=== PATIENT | female | born 1975 | race Caucasian/White ===

== ENCOUNTER 2017-05-24 17:34 | Emergency (ER) | payer MEDICARE, OTHER, SELFPAY | END 2017-05-24 18:30 | disposition home or self-care (01) | PROVIDERS: Emergency Provider Nurse Practitioner; Family Provider Family Medicine; Visit Provider Nurse Practitioner | DX: J18.1 Lobar pneumonia, unspecified organism (principal); E11.9 Type 2 diabetes mellitus without complications; I10 Essential (primary) hypertension; Z79.899 Other long term (current) drug therapy; Z88.0 Allergy status to penicillin | CPT/HCPCS: G0463; 71020; 94640; 99201 ==

== ENCOUNTER 2019-01-06 16:00 | Outpatient (RCR) | payer MEDICARE, OTHER, SELFPAY | END 2019-01-06 16:05 | disposition home or self-care (01) | LOC: PT 16:00 | PROVIDERS: PCP Family Medicine; Visit Provider Family Medicine | DX: I89.0 Lymphedema, not elsewhere classified (principal); M25.561 Pain in right knee | CPT/HCPCS: 97110; 97140; 97163 ==

== ENCOUNTER → 2019-07-09 13:35 | Outpatient (CLI) | payer MEDICARE, OTHER, SELFPAY ==
[2019-07-09 13:43] LABS: Adenovirus F 40/41, stool Not Detected (NotDetected); Astrovirus Not Detected (NotDetected); Campylobacter Not Detected (NotDetected); Clostridium Difficile A/B, PCR Not Detected (NotDetected); Cryptosporidium Not Detected (NotDetected); Cyclospora Cayetanesis Not Detected (NotDetected); Entamoeba histolytica Not Detected (NotDetected); Enteroaggregative E coli Not Detected (NotDetected); Enteropathogenic E coli Not Detected (NotDetected); Enterotoxigenic E coli Not Detected (NotDetected); Giardia lamblia Not Detected (NotDetected); Norovirus Not Detected (NotDetected); Plesimonas Shigalloides, PCR Not Detected (NotDetected); Rotavirus A Not Detected (NotDetected); Salmonella, PCR Not Detected (NotDetected); Sapovirus Not Detected (NotDetected); Shiga-like toxin E coli Not Detected (NotDetected); Shigella Enterovasive E coli Not Detected (NotDetected); Vibrio Cholerae Not Detected (NotDetected); Vibrio, PCR Not Detected (NotDetected); Yersinia Entercolitica, PCR Not Detected (NotDetected)
== END ==
PROVIDERS: Visit Provider Nurse Practitioner
DX: R19.7 Diarrhea, unspecified (principal)
CPT/HCPCS: 87506

== ENCOUNTER 2021-02-04 15:24 | Emergency (ER) | payer MEDICARE, OTHER, SELFPAY ==
[2021-02-04 16:10] VITALS: BP 157/85; PULSE 85; RESP 20; TEMP 36.6; O2SAT 99; BMI 88.9
--- NOTE | 2021-02-04 16:24 | HMH.EDUTC ---
[facility] [place] Disposition Clinical Impression: Lymphedema Cellulitis Qualifiers: Site of cellulitis: extremity Site of cellulitis of extremity: lower extremity Laterality: right Qualified Code(s): L03.115 - Cellulitis of right lower limb Disposition: Home, Self-Care Condition on Discharge: Good Instructions: Cellulitis Additional Instructions: Apply warm wet compresses to the affected sites three or four times per day for 15 minutes as tolerated. Take the antibiotics as directed. Follow up with your regular doctor on Saturday for a recheck. If this is not getting better, you may need to be admitted and get iv antibiotics for a few days to get it better. Cellulitis could make you very sick, so if you have any worsening symptoms please go straight to the er. GO TO THE ER FOR ANY WORSENING SYMPTOMS OR CONCERNS Prescriptions: Mupirocin [Bactroban 2% Ointment 22gm tube] 1 applicatio TP TID 7 Days #1 gm Transmission Status: Received by [facility] clindamycin HCL [Clindamycin HCl] 300 mg PO Q8H 10 Days #30 cap Transmission Status: Received by [id number] Referrals: Giselle Workman [Primary Care Provider] - Time of Disposition: 18:14 Medical Decision Making - Medical Records Medical records reviewed: No: I reviewed the patient's medical records. - Korey Inquiry Pt receiving controlled substance: No Vital Signs: 02/04/21 16:10 02/04/21 18:21 Temperature 98 F 98 F Temperature Source Oral Pulse Rate 85 Pulse Rate [Left] 85 Respiratory Rate 20 16 Blood Pressure 157/85 H Blood Pressure [Right Arm] 157/85 H Blood Pressure Mean [Right Arm] 109 02 Sat by Pulse Oximetry 99 - Lab Data Lab results reviewed: Yes: I reviewed the patient's lab results. Lab Results 02/04/21 17:13: WBC 13.8 H, RBC 3.49 L, Hgb 11.0 L, Hct 34.7 L, MCV 99.6 H, MCH 31.6 H, MCHC 31.7 L, RDW 14.9, Plt Count 216, MPV 8.0, Neut % (Auto) 90.1 H, Lymph % (Auto) 5.1 L, Brule % (Auto) 2.5, Eos % (Auto) 2.0, Baso % (Auto) 0.4, Neut # (Auto) 12.4 H, Lymph # (Auto) 0.7, Brule # (Auto) 0.3, Eos # (Auto) 0.3, Baso # (Auto) 0.1, Total Counted 100, Neutrophils % (Manual) 83 H, Band Neutrophils % 4.0, Lymphocytes % (Manual) 6 L, Monocytes % (Manual) 7, Platelet Estimate Normal, RBC Morphology Normal 02/04/21 17:13: Sodium 137, Potassium 3.9, Chloride 95 L, Carbon Dioxide 31 H, Anion Gap 14.9, BUN 31 H, Creatinine 1.30 H, Estimated Creat Clear 55, Estimated GFR 44 L, Est GFR ( Amer) 54 L, Glucose 233 H, Calcium 8.9, Total Bilirubin 2.5 H, AST 51 H, ALT 30, Alkaline Phosphatase 167 H, Total Protein 8.3 H, Albumin 3.9, Globulin 4.4 H, Albumin/Globulin Ratio 0.9 L 02/04/21 17:13: Lactate 1.8 02/04/21 17:13: Procalcitonin 1.73 Result diagrams: 02/04/21 17:13 02/04/21 17:13 Medical Decision Narrative: I wanted to transfer her to the ER for possible admission and further evaluation, but at this time she refuses. She states that she will return to the ER for even the slightest change in her condition. [facility] [place] HPI - General Stated complaint: r leg red and swelling Time Seen by Provider: 02/04/21 16:24 Mode of Arrival: Ambulatory Source of Information: Patient Limitations: No Limitations Description of Symptoms (Recalled from Triage Doc. by RN): PT C/O REDNESS, SWELLING AND OOZING AREA ON ENTIRE R THIGH. HEENT Symptoms (Recalled from RN notes): No Resp Symptoms (Recalled from RN notes): No Skin Symptoms (Recalled from RN notes): Yes (RED, SWOLLEN, OOZING, WARM AREA ON ENTIRE UPPER OUTER THIGH) MS Symptoms (Recalled from RN notes): No Functional Status (Recalled from RN notes): NA - History of Present Illness Provider Complaint: She has had redness of her right upper leg, weeping from her skin, and pain/tenderness of that site for the past 2 days. She has ran a low grade fever and had chilling also. She has a long history of bilateral leg lymphedema. She states that she has essentially had that since she was a child.
[2021-02-04 17:25] LABS: Basophils # 0.1 K/mm3 (0-0.2); Basophils % 0.4 % (0.1-2.0); Eosinophils # 0.3 K/mm3 (0.0-0.4); Hematocrit 34.7 % (37.0-47.0); Lymphocytes # 0.7 K/mm3 (0.7-4.5); Lymphocytes % 5.1 % (10-50); Mean Corpuscular HGB Conc 31.7 g/dL (31.8-35.4); Mean Corpuscular Hemoglobin 31.6 pg (27.0-31.2); Mean Corpuscular Volume 99.6 fl (81-99); Monocytes # 0.3 K/mm3 (0.1-1.0); Monocytes % 2.5 % (1.7-9.3); Neutrophils # 12.4 K/mm3 (1.8-7.8); Neutrophils % 90.1 % (37.0-80.0); Platelet Count 216 K/mm3 (142-424); Red Blood Count 3.49 M/mm3 (4.20-5.40); Red Cell Distribution Width 14.9 % (11.5-17.5); White Blood Count 13.8 K/mm3 (4.8-10.8)
[2021-02-04 17:28] LABS: Chloride 95 mmol/L (98-107)
[2021-02-04 17:29] LABS: Potassium 3.9 mmoL/L (3.5-5.1); Sodium 137 mmol/L (136-145)
[2021-02-04 17:31] LABS: Alanine Aminotransferase 30 U/L (12-78); Aspartate Amino Transferase 51 U/L (14-36); Blood Urea Nitrogen 31 mg/dl (7-17); Creatinine Clearance Estimated 55 mL/min (50-200); Estimated Glomerular Filt Rate 44 ml/min (>60); GFR (African American) 54 ML/MIN (>60)
[2021-02-04 17:32] LABS: Albumin Level 3.9 g/dl (3.5-5.0); Albumin/Globulin Ratio 0.9 (1.1-1.8); Alkaline Phosphatase 167 U/L (38-126); Anion Gap 14.9 mEq/L (5-15); Bilirubin,Total 2.5 mg/dl (0.2-1.3); Calcium 8.9 mg/dl (8.4-10.2); Carbon Dioxide 31 mmol/L (22.0-30.0); Globulin 4.4 g/dL (1.3-3.2); Glucose 233 mg/dl (74-100); MANUAL DIFFERENTIAL MANUAL DIFFERENTIAL (MANUAL DIFF); Total Protein,Serum 8.3 g/dl (6.3-8.2)
[2021-02-04 17:40] LABS: Lactic Acid 1.8 mmol/L (0.7-2.1)
[2021-02-04 17:42] LABS: Lymphocytes % 6 % (10-50); Monocytes % 7 % (2-9); Neutrophils % 83 % (42-76); Platelet Estimate Normal; RBC Morphology Normal; Total Cells Counted 100
[2021-02-04 17:56] LABS: Procalcitonin 1.73 ng/mL (0.0-2.0)
[2021-02-04 18:21] VITALS: BP 157/85; PULSE 85; RESP 16; TEMP 36.6
== END 2021-02-04 18:36 | disposition home or self-care (01) ==
PROVIDERS: Emergency Provider Nurse Practitioner Family; PCP Family Medicine
DX: L03.115 Cellulitis of right lower limb (principal); I89.0 Lymphedema, not elsewhere classified; J44.9 Chronic obstructive pulmonary disease, unspecified; K21.9 Gastro-esophageal reflux disease without esophagitis; E78.5 Hyperlipidemia, unspecified; E03.9 Hypothyroidism, unspecified; Z88.0 Allergy status to penicillin
CPT/HCPCS: G0463; 80053; 83605; 84145; 85007; 85025; 99202

== ENCOUNTER → 2021-02-16 15:58 | Outpatient (CLI) | payer MEDICARE, OTHER, SELFPAY ==
--- NOTE | 2021-02-16 16:09 | XR_ITS ---
PROCEDURE INFORMATION: Exam: XR Right Foot Exam date and time: 02/16/2021 4:09 PM Age: 45 years old Clinical indication: Ankle and foot; Patient HX: Bilateral foot and ankle pain , no injury , patient weighs 585 lbs TECHNIQUE: Imaging protocol: XR Right foot. Views: 3 or more views. COMPARISON: CR Knee R 12/12/2018 2:07 PM FINDINGS: Bones/joints: There is no evidence of acute fracture.There is no evidence of malalignment or dislocation. Soft tissues: Soft tissue swelling over the dorsum of foot.. IMPRESSION: 1. Soft tissue swelling over the dorsum of foot.. 2. There is no evidence of acute fracture.There is no evidence of malalignment or dislocation.
--- NOTE | 2021-02-16 16:09 | XR_ITS ---
PROCEDURE INFORMATION: Exam: XR Right Ankle Exam date and time: 02/16/2021 4:09 PM Age: 45 years old Clinical indication: Ankle and foot; Bilateral; Patient HX: No injury, pain , a the the a a patient weighs 585 lbs; Additional info: Bilateral foot and ankle pain TECHNIQUE: Imaging protocol: XR Right ankle. Views: 3 or more views. COMPARISON: CR Knee R 12/12/2018 2:07 PM FINDINGS: Bones/joints: There is no evidence of acute fracture.There is no evidence of malalignment or dislocation. Degenerative changes in the medial malleolus Soft tissues: Bimalleolar soft tissue swelling . IMPRESSION: 1. Bimalleolar soft tissue swelling . 2. There is no evidence of acute fracture.There is no evidence of malalignment or dislocation.
--- NOTE | 2021-02-16 16:09 | XR_ITS ---
PROCEDURE INFORMATION: Exam: XR Left Ankle Exam date and time: 02/16/2021 4:09 PM Age: 45 years old Clinical indication: Ankle and foot; Patient HX: Bilateral foot and ankle pain, no injury patient weighs 585 lbs TECHNIQUE: Imaging protocol: XR Left ankle. Views: 3 or more views. COMPARISON: CR XR FOOT LT MIN 3V 02/16/2021 4:28 PM FINDINGS: Bones/joints: Medial malleolar degenerative changes. There is no evidence of acute fracture.There is no evidence of malalignment or dislocation. Soft tissues: Bimalleolar soft tissue swelling IMPRESSION: There is no evidence of acute fracture.There is no evidence of malalignment or dislocation.
--- NOTE | 2021-02-16 16:09 | XR_ITS ---
PROCEDURE INFORMATION: Exam: XR Left Foot Exam date and time: 02/16/2021 4:09 PM Age: 45 years old Clinical indication: Ankle and foot; Patient HX: Bilateral foot and ankle pain, no injury , patient weighs 585 lbs TECHNIQUE: Imaging protocol: XR Left foot. Views: 3 or more views. COMPARISON: No relevant prior studies available. FINDINGS: Bones/joints: There is no evidence of acute fracture.There is no evidence of malalignment or dislocation. Soft tissues: Soft tissue swelling over the dorsum of the foot IMPRESSION: There is no evidence of acute fracture.There is no evidence of malalignment or dislocation.
== END ==
PROVIDERS: PCP Family Medicine; Visit Provider Family Medicine
DX: M25.572 Pain in left ankle and joints of left foot (principal); M25.571 Pain in right ankle and joints of right foot; M79.672 Pain in left foot; M79.671 Pain in right foot
CPT/HCPCS: 73610; 73630

== ENCOUNTER 2022-07-08 11:32 | Emergency (ER) | payer MEDICARE, OTHER, SELFPAY ==
[2022-07-08 11:32] VITALS: BP 198/108; PULSE 95; RESP 18; TEMP 36.5; O2SAT 96; BMI 88.9
--- NOTE | 2022-07-08 11:43 | PC.NURSE ---
HARI ESQUIVEL at
--- NOTE | 2022-07-08 11:45 | XR_ITS ---
PROCEDURE INFORMATION: Exam: XR Left Foot Exam date and time: 07/08/2022 12:08 PM Age: 46 years old Clinical indication: Pain; Ankle and foot; Left TECHNIQUE: Imaging protocol: Radiologic exam of the Left foot. Views: 3 or more views. COMPARISON: CR XR FOOT LT MIN 3V 02/16/2021 4:28 PM FINDINGS: Bones/joints: No acute fracture or malalignment. Mild 1st MTP joint degenerative changes. Calcaneal enthesopathy. Soft tissues: Normal. IMPRESSION: No acute fracture or malalignment.
--- NOTE | 2022-07-08 11:45 | XR_ITS ---
PROCEDURE INFORMATION: Exam: XR Left Ankle Exam date and time: 07/08/2022 12:08 PM Age: 46 years old Clinical indication: Pain; Ankle; Left TECHNIQUE: Imaging protocol: Radiologic exam of the Left ankle. Views: 3 or more views. COMPARISON: CR XR ANKLE LT MIN 3V 02/16/2021 4:34 PM FINDINGS: Bones/joints: No acute fracture or malalignment. Joint spaces are maintained. Calcaneal enthesopathy. Soft tissues: Subcutaneous soft tissue calcifications are seen. IMPRESSION: No acute fracture or malalignment.
--- NOTE | 2022-07-08 11:46 | HMH.EDGENADL ---
Discharge Plan Disposition Patient Disposition: Home, Self-Care Condition: Good Prescriptions Prescriptions: New hydrocodone-acetaminophen 5-325 mg tablet 1 tab PO Q6H PRN (Reason: pain) Qty: 10 0RF No Action tizanidine 4 MG tablet 8 mg PO HS PRN (Reason: MUSCLE RELAXER) famotidine 20 MG tablet 20 mg PO BID Label Comments: TAKE 1 TABLET BY MOUTH TWICE DAILY gabapentin 800 MG tablet 800 mg PO QID Label Comments: TAKE 4 TABLETS BY MOUTH DAILY levothyroxine 50 MCG tablet 25 mcg PO DAILY glimepiride 4 MG tablet 16 mg PO DAILY montelukast 10 MG tablet 10 mg PO PM pravastatin 20 MG tablet 20 mg PO DAILY metoprolol succinate [Toprol XL] 25 mg Tablet Extended Release 24 Hr 25 mg PO DAILY cefdinir 300 mg Capsule 300 mg PO DAILY Eliquis 5 mg Tablet 5 mg PO BID Rybelsus 3 mg Tablet 3 mg PO DAILY Referrals Follow up/Referrals: Provider,Referral, [Referring] - See instructions Mary Velasco DPM [Staff Physician] - See instructions Activity Restrictions/Add. Instructions Additional Instructions/Restrictions: Stay off of your left foot is much as possible until seen by podiatry, Dr. Velasco. Call Dr. Velasco's office tomorrow to make an appointment to be seen as soon as possible. Tylenol as needed for pain, [place] as needed for more severe pain. Additional instructions for CONTROLLED SUBSTANCES: You have been prescribed a medication that is a controlled substance. Controlled substances include pain medications known as opiates and sedative nerve medications known as benzodiazepines. Tramadol, fioricet, and gabapentin are also controlled substances. Some common opiates include: Codeine (such as Tylenol #3) Hydrocodone (Vicodin, Lortab, Lorcet, [place]) Oxycodone (Percocet, Percodan, Oxycodone, Oxy IR) Some common benzodiazepines include: Diazepam (Valium) Lorazepam (Ativan) Alprazolam (Xanax) Clonazepam (Klonopin) Oxazepam (Serax) All of these controlled substances are highly addictive and frequently abused. Misuse can and frequently does lead to addiction as well as overdose and . Medication should be stored in a locked cabinet or other secure storage unit. Do not store the medication in a motor vehicle. Short term supplies, 3 days or less, are prescribed because of the highly addictive nature of the medication. Any of the controlled substance medication NOT taken should be disposed of properly and NOT SAVED. The recommended method of disposing of unused medications is: Place the medicines in a sealable plastic bag. If the medicine is a solid, crush it or add water to dissolve it. Add something undesirable (cat litter, coffee grounds, etc.) Dispose of sealed bag in household trash Do not flush or pour unused medicines down a sink or drain. Controlled substances should not be shared, given away or sold. Because of the addictive nature and frequent abuse, these medications are sometimes stolen. These medications should be kept in a safe place where they cannot be stolen. Do not keep them in your car or purse. Lost or stolen prescriptions for controlled substances WILL NOT BE REFILLED in this emergency department, regardless of whether a police report was filed. Clinical Impressions Clinical Impression: Foot sprain, Ankle sprain Instructions Patient Instructions: DI for Ankle Sprain, DI for Foot Sprain Discharge ED Provider: Sameer Camacho General Adult [facility] General Chief complaint: Extremity Injury, Lower Stated complaint: pain Time Seen by Provider: 07/08/22 11:39 Mode of Arrival: Wheelchair Source of Information: Patient Limitations: No Limitations Description of Symptoms (Recalled from ER Triage Doc. by RN): Pt c/o L ankle pain radiating into the side of her foot for approx 1 weeks with worsening pain. Pt reports initally pain was only when bearing weight but now pain is at rest also.
--- NOTE | 2022-07-08 11:50 | PC.NURSE ---
rad notified of xray orders
--- NOTE | 2022-07-08 11:52 | PC.NURSE ---
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 NO active bleeding upon arrival to ED.
[2022-07-08 12:41] VITALS: BP 163/91; PULSE 73; RESP 18; TEMP 36.5; O2SAT 93
== END 2022-07-08 12:41 | disposition home or self-care (01) ==
PROVIDERS: Emergency Provider Emergency Medicine; PCP Family Medicine
DX: S93.602A Unspecified sprain of left foot, initial encounter (principal); S93.402A Sprain of unspecified ligament of left ankle, initial encounter; X58.XXXA Exposure to other specified factors, initial encounter
CPT/HCPCS: 73610; 73630; 99284

== ENCOUNTER → 2022-07-30 07:42 | Outpatient (CLI) | payer MEDICARE, OTHER, SELFPAY ==
--- NOTE | 2022-07-30 07:45 | XR_ITS ---
FINAL REPORT CLINICAL HISTORY: Left ankle pain FINDINGS: LEFT ANKLE: Three views of the left ankle were obtained. There is no acute fracture or dislocation. There are mild degenerative changes. Multiple soft tissue calcifications are noted. IMPRESSION: No acute bony abnormality. Reviewed, Interpreted and Dictated by Darrell Cohen III, MD Transcribed by Claudia Werner Authenticated and [facility]
--- NOTE | 2022-07-30 07:45 | XR_ITS ---
FINAL REPORT CLINICAL HISTORY: Left foot pain FINDINGS: LEFT FOOT: Three views of the left foot were obtained. There is no acute fracture or dislocation. There are calcaneal spurs. Mild degenerative changes are noted in the 1st MTP joint. There is no soft tissue abnormality. IMPRESSION: No acute bony abnormality. Reviewed, Interpreted and Dictated by Darrell Cohen III, MD Transcribed by Claudia Werner Authenticated and [facility]
== END ==
PROVIDERS: PCP Family Medicine; Visit Provider Podiatrist
DX: M25.572 Pain in left ankle and joints of left foot (principal); S93.602A Unspecified sprain of left foot, initial encounter; S93.402A Sprain of unspecified ligament of left ankle, initial encounter
CPT/HCPCS: 73610; 73630

== ENCOUNTER → 2022-08-27 08:35 | Outpatient (CLI) | payer MEDICARE, OTHER, SELFPAY ==
--- NOTE | 2022-08-27 08:40 | XR_ITS ---
FINAL REPORT CLINICAL HISTORY: fx f/u COMPARISON: July 30, 2022 FINDINGS: 3 views of the left foot were obtained. There is no acute fracture or dislocation. The joint spaces are intact. There is a moderate plantar spur. There is soft tissue edema over the dorsum of the foot up to 1.8 cm. IMPRESSION: No acute osseous abnormality. Reviewed, Interpreted and Dictated by Brant Babb MD Transcribed by Lg Tamez Authenticated and [facility]
== END ==
PROVIDERS: PCP Family Medicine; Visit Provider Podiatrist
DX: M77.32 Calcaneal spur, left foot (principal)
CPT/HCPCS: 73630

== ENCOUNTER → 2022-09-11 14:17 | Outpatient (CLI) | payer MEDICARE, OTHER, SELFPAY | PROVIDERS: PCP Family Medicine; Visit Provider Physician Assistant | DX: E11.40 Type 2 diabetes mellitus with diabetic neuropathy, unspecified (principal); E66.01 Morbid (severe) obesity due to excess calories; R06.00 Dyspnea, unspecified; R60.9 Edema, unspecified; Z82.49 Family history of ischemic heart disease and other diseases of the circulatory system; Z79.84 Long term (current) use of oral hypoglycemic drugs; Z68.45 Body mass index [BMI] 70 or greater, adult | CPT/HCPCS: 93306 ==

== ENCOUNTER → 2022-10-08 11:25 | Outpatient (CLI) | payer MEDICARE, OTHER, SELFPAY ==
--- NOTE | 2022-10-08 11:26 | CT_ITS ---
FINAL REPORT TECHNIQUE: Then section axial CT images of the chest were obtained with contrast. Three-D reformatted images were also obtained.This study was performed with techniques to keep radiation doses as low as reasonably achievable (ALARA). Individualized dose reduction techniques using automated exposure control or adjustment of mA and/or kV according to the patient''s size were employed. CLINICAL HISTORY: dyspnea, abnoraml ekg FINDINGS: There is no evidence of pulmonary embolism. There is no evidence of thoracic aortic aneurysm or dissection. There is no evidence of mediastinal or hilar mass or adenopathy. There is no evidence of pulmonary mass or suspicious nodule. Mild pulmonary alveolar opacities favoring pulmonary edema. Limited images of the upper abdomen are unremarkable. IMPRESSION: No evidence of pulmonary embolism. Mild pulmonary alveolar opacities favoring pulmonary edema. Reviewed, Interpreted and Dictated by Darrell Cohen III, MD Transcribed by Lg Tamez Authenticated and . [facility]
== END ==
PROVIDERS: PCP Family Medicine; Visit Provider Nurse Practitioner
DX: E11.40 Type 2 diabetes mellitus with diabetic neuropathy, unspecified (principal); E66.01 Morbid (severe) obesity due to excess calories; R06.09 Other forms of dyspnea; R60.9 Edema, unspecified; R94.31 Abnormal electrocardiogram [ECG] [EKG]; Z82.49 Family history of ischemic heart disease and other diseases of the circulatory system; Z79.84 Long term (current) use of oral hypoglycemic drugs; Z68.45 Body mass index [BMI] 70 or greater, adult
CPT/HCPCS: 71275; Q9967

== ENCOUNTER → 2022-11-06 10:07 | Outpatient (CLI) | payer MEDICARE, OTHER, SELFPAY ==
--- NOTE | 2022-11-06 10:16 | XR_ITS ---
FINAL REPORT CLINICAL HISTORY: foot pain FINDINGS: LEFT FOOT: Three views of the left foot were obtained. There is no acute fracture or dislocation. A plantar calcaneal spur is noted. There is mild degenerative change in the left foot. There is no soft tissue abnormality. IMPRESSION: No acute bony abnormality. Reviewed, Interpreted and Dictated by Darrell Cohen III, MD Transcribed by Fannie Silvestre Authenticated and [facility]
--- NOTE | 2022-11-06 10:16 | XR_ITS ---
FINAL REPORT CLINICAL HISTORY: ankle pain FINDINGS: LEFT ANKLE: Three views of the left ankle were obtained. There is no acute fracture or dislocation. The joint spaces and mortise are intact. Soft tissue calcification is noted. IMPRESSION: No acute bony abnormality. Reviewed, Interpreted and Dictated by Darrell Cohen III, MD Transcribed by Fannie Silvestre Authenticated and [facility]
== END ==
PROVIDERS: PCP Family Medicine; Visit Provider Nurse Practitioner Family
DX: M79.672 Pain in left foot (principal)
CPT/HCPCS: 73610; 73630

== ENCOUNTER → 2022-12-11 10:20 | Outpatient (CLI) | payer MEDICARE, OTHER, SELFPAY ==
--- NOTE | 2022-12-11 10:23 | XR_ITS ---
FINAL REPORT CLINICAL HISTORY: foot pain COMPARISON: 11/06/2022 FINDINGS: AP, oblique and lateral views of the left foot were obtained. There is no acute fracture or dislocation. There is mild degenerative disease present. Soft tissues are normal. IMPRESSION: No acute osseous abnormality of the left foot. Stable, no change since the prior. Reviewed, Interpreted and Dictated by Ara Vazquez MD Transcribed by Anali Alvarez Authenticated and [facility] [place]
--- NOTE | 2022-12-11 10:23 | XR_ITS ---
FINAL REPORT CLINICAL HISTORY: ankle pain COMPARISON: 11/06/2022 FINDINGS: AP, oblique, and lateral views of the left ankle were obtained. There is no fracture or dislocation. The ankle mortise is intact. Soft tissues are normal. There is mild degenerative joint disease. IMPRESSION: No acute osseous abnormality of the left ankle. Stable since the prior with no change. Reviewed, Interpreted and Dictated by Ara Vazquez MD Transcribed by Anali Alvarez Authenticated and [facility]
== END ==
PROVIDERS: PCP Family Medicine; Visit Provider Nurse Practitioner Family
DX: M77.32 Calcaneal spur, left foot; M79.672 Pain in left foot; M84.375A Stress fracture, left foot, initial encounter for fracture
CPT/HCPCS: 73610; 73630

== ENCOUNTER 2022-12-15 14:26 | Emergency (ER) | payer MEDICARE, OTHER, SELFPAY ==
--- NOTE | 2022-12-15 14:29 | XR_ITS ---
PROCEDURE INFORMATION: Exam: XR Left Knee Exam date and time: 12/15/2022 3:16 PM Age: 46 years old Clinical indication: Pain; Knee; Left TECHNIQUE: Imaging protocol: Radiologic exam of the left knee. Views: 3 views. COMPARISON: CR XR ANKLE WT BEARING LT MIN 3V 12/11/2022 10:25 AM FINDINGS: Bones/joints: Tricompartmental joint space narrowing and osteophyte formation consistent with degenerative changes.. Bone on bone in the patellofemoral joint. Small suprapatellar joint effusion. There is no evidence of acute fracture.There is no evidence of malalignment or dislocation. Soft tissues: Normal. IMPRESSION: 1. Tricompartmental joint space narrowing and osteophyte formation consistent with degenerative changes.. Bone on bone in the patellofemoral joint. 2. Small suprapatellar joint effusion. 3. There is no evidence of acute fracture.There is no evidence of malalignment or dislocation.
[2022-12-15 14:45] VITALS: BP 148/93; PULSE 68; RESP 19; TEMP 36.6; O2SAT 98; BMI 73.9
--- NOTE | 2022-12-15 15:14 | EXP.UTC ---
Discharge Plan Disposition Patient Disposition: Home, Self-Care Condition: Good Prescriptions Prescriptions: New prednisone 10 mg tablet 10 mg PO BID 5 Days Qty: 10 0RF No Action liothyronine 25 mcg tablet 25 mcg PO DAILY bumetanide 2 mg tablet 2 mg PO BID fluticasone furoate-vilanterol [Breo Ellipta] 200-25 mcg/dose blister with device 1 inh inhalation DAILY albuterol sulfate 90 mcg/actuation HFA aerosol inhaler 1 inh inhalation multivitamin with iron [Daily Vitamin with Iron] Tablet 1 tab PO ONCE valsartan 160 mg tablet 160 mg PO DAILY Qty: 30 5RF tizanidine 4 MG tablet 8 mg PO HS PRN (Reason: MUSCLE RELAXER) famotidine 20 MG tablet 20 mg PO BID Patient Comments: TAKE 1 TABLET BY MOUTH TWICE DAILY gabapentin 800 MG tablet 800 mg PO QID Patient Comments: TAKE 4 TABLETS BY MOUTH DAILY glimepiride 4 MG tablet 16 mg PO DAILY montelukast 10 MG tablet 10 mg PO PM pravastatin 20 MG tablet 20 mg PO DAILY metoprolol succinate [Toprol XL] 25 mg Tablet Extended Release 24 Hr 25 mg PO DAILY Rybelsus 3 mg tablet 7 mg PO DAILY Referrals Follow up/Referrals: Giselle Workman [Primary Care Provider] - See instructions Activity Restrictions/Add. Instructions Additional Instructions/Restrictions: elevated rest steroids follow up with pcp for more work up Clinical Impressions Clinical Impression: Acute pain of left knee Instructions Patient Instructions: DI for Knee Pain Discharge ED Provider: Haresh ([facility] [place] HPI General Stated complaint: AO 7/8 LT knee pain Mode of Arrival: Ambulatory Source of Information: Patient Limitations: No Limitations Time Seen by Provider: 12/15/22 15:14 Description of Symptoms (Recalled from Triage Doc. by RN): PATIENT C/O LEFT KNEE PAIN X 3 WEEKS. SHE STATES SHE WAS WALKING AND FELT IT POP HEENT Symptoms (Recalled from RN notes): No Resp Symptoms (Recalled from RN notes): No Skin Symptoms (Recalled from RN notes): No MS Symptoms (Recalled from RN notes): Yes Functional Status (Recalled from RN notes): WNL History of Present Illness Provider Complaint: 46 yr old female presents for left knee pain. pt states about 3 weeks ago she was walking and felt a pop in her knee and since then the pain has not improved. pt states pain is stabbing with walking and a dull pain when at rest Related Data Home Medications Medication Instructions Recorded Confirmed famotidine 20 mg tablet 20 mg PO BID GERD 06/06/19 12/12/22 gabapentin 800 mg tablet 800 mg PO QID NEUROPATHY 06/06/19 12/12/22 glimepiride 4 mg tablet 16 mg PO DAILY Diabetes 06/06/19 12/12/22 montelukast 10 mg tablet 10 mg PO PM Asthma 06/06/19 12/12/22 pravastatin 20 mg tablet 20 mg PO DAILY Cholesterol 06/06/19 12/12/22 tizanidine 4 mg tablet 8 mg PO HS PRN MUSCLE RELAXER 06/06/19 12/12/22 metoprolol succinate 25 mg 25 mg PO DAILY heart 07/08/22 12/12/22 tablet,extended release 24 hr (Toprol XL) albuterol sulfate 90 mcg/actuation 1 inh inhalation 09/04/22 12/12/22 aerosol inhaler bumetanide 2 mg tablet 2 mg PO BID 09/04/22 12/12/22 fluticasone furoate 200 1 inh inhalation DAILY 09/04/22 12/12/22 mcg-vilanterol 25 mcg/dose inhalation powder (Breo Ellipta) liothyronine 25 mcg tablet 25 mcg PO DAILY 09/04/22 12/12/22 multivitamin with iron (Daily 1 tab PO ONCE 09/04/22 12/12/22 Vitamin with Iron tablet) semaglutide 3 mg tablet (Rybelsus) 7 mg PO DAILY . 11/29/22 12/12/22 Previous Rx's Medication Instructions Recorded valsartan 160 mg tablet 160 mg PO DAILY #30 tabs 09/04/22 prednisone 10 mg tablet 10 mg PO BID 5 days #10 tabs 12/15/22 Allergies Allergy/AdvReac Type Severity Reaction Status Date / Time aspirin [ASPIRIN] Allergy Unknown Verified 12/12/22 19:57 levofloxacin [From LEVAQUIN] Allergy Unknown Verified 12/12/22 19:57 Penicillins [PENICILLINS] Allergy Unknown Verified
[2022-12-15 15:39] VITALS: BP 148/93; PULSE 68; RESP 19; TEMP 36.6; O2SAT 98
== END 2022-12-15 15:53 | disposition home or self-care (01) ==
PROVIDERS: Emergency Provider Nurse Practitioner Family; PCP Family Medicine
DX: M25.562 Pain in left knee (principal); J44.9 Chronic obstructive pulmonary disease, unspecified; E11.9 Type 2 diabetes mellitus without complications; K21.9 Gastro-esophageal reflux disease without esophagitis; E03.9 Hypothyroidism, unspecified; E78.5 Hyperlipidemia, unspecified; Z79.84 Long term (current) use of oral hypoglycemic drugs; X50.0XXA Overexertion from strenuous movement or load, initial encounter
CPT/HCPCS: 73562; 99212; 99214; G0463

== ENCOUNTER → 2023-04-11 14:54 | Outpatient (CLI) | payer MEDICARE, OTHER, SELFPAY ==
--- NOTE | 2023-04-11 14:57 | US_ITS ---
PROCEDURE: US TRANSVAGINAL CLINICAL INDICATION: pellvic pain COMPARISON: No exams were available for comparison FINDINGS: Transvaginal and transabdominal sonographic images of the pelvis were obtained. Difficult scan secondary to patient body habitus. UTERUS: 9.3 cm x 4.7 cmx 3.7 cm with a combined endometrial thickness of 9.7mm. There is a small amount of fluid within the cervix. Possibly mucus. A scar is seen. LEFT OVARY: 4.1 cmx3.6 cmx2.4cm with a volume of 18.6ml. RIGHT OVARY: 4.2 cmx 3.2 cmx2.4 cm with a volume of 16.4ml. There are too small follicles on right ovary. Both ovaries are seen and appear normal. Doppler flow to both ovaries are seen. There is no fluid in the cul-de-sac. IMPRESSION: 1. Anteverted uterus normal in shape and size. The endometrium is 9.7 mm. 2. Both ovaries are seen and appear normal. There are 2 small follicles on the right ovary. 3. No fluid in the cul-de-sac. Dictated by: Corky Linares MD 04/11/2023 17:10 Corky Linares MD in OV 04/11/2023 17:10
== END ==
PROVIDERS: PCP Family Medicine; Visit Provider Obstetrics & Gynecology
DX: R10.2 Pelvic and perineal pain (principal)
CPT/HCPCS: 76830

== ENCOUNTER 2023-10-23 18:35 | Emergency (ER) | payer MEDICARE, OTHER, SELFPAY ==
[2023-10-23 19:45] VITALS: BP 121/68; PULSE 74; RESP 20; TEMP 36.6; O2SAT 100; BMI 66.9
--- NOTE | 2023-10-23 20:43 | EXP.UTC ---
Discharge Plan Disposition Patient Disposition: Home, Self-Care Condition: Good Prescriptions Prescriptions: New nystatin 100,000 unit/mL suspension 4 ml buccal QID 10 Days Qty: 160 0RF Rx Instructions: administer 1/2 of dose in each side of the mouth gargle and spit No Action liothyronine 25 mcg tablet 25 mcg PO DAILY albuterol sulfate 90 mcg/actuation HFA aerosol inhaler 1 inh inhalation multivitamin with iron [Daily Vitamin with Iron] Tablet 1 tab PO ONCE bumetanide 2 mg tablet 2 mg PO DAILY valsartan 160 mg tablet 160 mg PO DAILY Qty: 30 11RF fluticasone propion-salmeterol [Advair HFA] 230-21 mcg/actuation HFA aerosol inhaler 2 puff inhalation BID Patient Comments: INHALE 2 PUFFS BY MOUTH TWICE DAILY Jardiance 10 mg tablet 10 mg PO DAILY Patient Comments: TAKE 1 TABLET BY MOUTH IN THE MORNING tizanidine 4 MG tablet 8 mg PO HS PRN (Reason: MUSCLE RELAXER) famotidine 20 MG tablet 20 mg PO BID Patient Comments: TAKE 1 TABLET BY MOUTH TWICE DAILY gabapentin 800 MG tablet 800 mg PO QID Patient Comments: TAKE 4 TABLETS BY MOUTH DAILY glimepiride 4 MG tablet 16 mg PO DAILY montelukast 10 MG tablet 10 mg PO PM pravastatin 20 MG tablet 20 mg PO DAILY metoprolol succinate [Toprol XL] 25 mg Tablet Extended Release 24 Hr 25 mg PO DAILY Rybelsus 3 mg tablet 14 mg PO DAILY Referrals Follow up/Referrals: Giselle Workman [Primary Care Provider] - See instructions Activity Restrictions/Add. Instructions Additional Instructions/Restrictions: Use Nystatin as prescribed Follow up with your Family doctor if no improvement Return if needed Straight to ER if any life threatening symptoms Clinical Impressions Clinical Impression: Thrush Instructions Patient Instructions: DI for Thrush, Thrush-Adult Discharge ED Provider: Chandrika Klein [facility] [place] HPI General Stated complaint: sore throat Mode of Arrival: Ambulatory Source of Information: Patient Limitations: No Limitations Time Seen by Provider: 10/23/23 20:43 Description of Symptoms (Recalled from Triage Doc. by RN): PATIENT C/O SORE THROAT WITH WHITE SPOTS X 4 DAYS. SHE REPORTS RECENTLY BEING ON ANTIBIOTIC FOR TOOTH EXTRACTION HEENT Symptoms (Recalled from RN notes): Yes Resp Symptoms (Recalled from RN notes): No Skin Symptoms (Recalled from RN notes): No MS Symptoms (Recalled from RN notes): No Functional Status (Recalled from RN notes): WNL History of Present Illness Provider Complaint: Patient states that she feels like he may have thrush States that she was recently on antibiotics and since she has been having white patches like area in her mouth and on the back of her throat States that she has done this before with this antiboitocs so she came in to get some the mouthwash medication to help clear it up Related Data Home Medications Medication Instructions Recorded Confirmed famotidine 20 mg tablet 20 mg PO BID GERD 06/06/19 09/02/23 gabapentin 800 mg tablet 800 mg PO QID NEUROPATHY 06/06/19 09/02/23 glimepiride 4 mg tablet 16 mg PO DAILY Diabetes 06/06/19 09/02/23 montelukast 10 mg tablet 10 mg PO PM Asthma 06/06/19 09/02/23 pravastatin 20 mg tablet 20 mg PO DAILY Cholesterol 06/06/19 09/02/23 tizanidine 4 mg tablet 8 mg PO HS PRN MUSCLE RELAXER 06/06/19 09/02/23 metoprolol succinate 25 mg 25 mg PO DAILY heart 07/08/22 09/02/23 tablet,extended release 24 hr (Toprol XL) albuterol sulfate 90 mcg/actuation 1 inh inhalation 09/04/22 09/02/23 aerosol inhaler liothyronine 25 mcg tablet 25 mcg PO DAILY 09/04/22 09/02/23 multivitamin with iron (Daily 1 tab PO ONCE 09/04/22 09/02/23 Vitamin with Iron tablet) bumetanide 2 mg tablet 2 mg PO DAILY 09/02/23 09/02/23 empagliflozin 10 mg tablet 10 mg PO DAILY 09/02/23 09/02/23 (Jardiance) fluticasone propionate 230 2 puff inhalation BID 09/02/23 09/02/23 mcg-salmeterol 21 mcg/actuation HFA inhaler (Advair HFA) semaglutide 3 mg tablet (Rybelsus) 14 mg PO DAILY . 09/02/23 09/02/23 Previous Rx's Medication Instructions Recorded valsartan 160 mg tablet 160 mg PO DAILY #30 tabs 02/28/23 nystatin 100,000 unit/mL oral 4 ml buccal QID 10 days #160 mL 10/23/23 suspension Allergies Allergy/AdvReac Type Severity Reaction Status Date / Time aspirin [ASPIRIN] Allergy Unknown Verified 09/02/23 14:01 levofloxacin [From LEVAQUIN] Allergy Unknown Verified 09/02/23 14:01 Penicillins [PENICILLINS] Allergy Unknown Verified 09/02/23 14:01 topiramate [From Topamax] Allergy Verified 09/02/23 14:01 Worker's Comp Is this a Worker's Comp case?: No [facility] Disclaimer: The information contained in this section may have been updated after the patient was seen, as this information can be updated by other users. Medical History Clear vaginal discharge 1 week after her period Cyclical pelvic pain Hypothyroidism HLD (hyperlipidemia) GERD (gastroesophageal reflux disease) T2DM (type 2 diabetes mellitus) COPD (chronic obstructive pulmonary disease) Surgical History H/O section Hx of tonsillectomy Hx of myringotomy Social History Smoking Status: Never smoker alcohol intake: never current occupational status: disabled Travel in the last 8 weeks: None ROS Obtained: Yes All systems reviewed & no additional complaints except as documented and Yes Systems reviewed as appropriate & no additional complaints except as documented Constitutional Constitutional: Reports system reviewed and no additional complaints, except as documented and Reports as per HPI ENT Ears, Nose, Mouth, and Throat: Reports system reviewed and no additional complaints, except as documented, Reports as per HPI and Reports other (white patchy like areas in mouth) Physical Exam General General appearance: alert and in no apparent distress ENT ENT exam: Present mucous membranes moist Expanded ENT Exam Throat exam: Present other (white patchy like areas noted on back of throat and tongue appears like thrush) Respiratory Respiratory exam: Present normal lung sounds bilaterally; Absent respiratory distress or wheezes Cardiovascular Cardiovascular exam: Present regular rate, normal rhythm and normal heart sounds Neurological Exam Neurological exam: Present alert, oriented X3 and normal gait Medical Decision Making Korey Inquiry Pt receiving controlled substance: No Korey was queried for this patient: No Vital Signs: 10/23/23 19:45 Temperature 97.9 F Temperature Source Oral Pulse Rate [Left Brachial] 74 Respiratory Rate 20 Blood Pressure [Left Arm] 121/68 Blood Pressure Mean [Left Arm] 85 Blood Pressure Source [Left Arm] Automatic Cuff Blood Pressure Position [Left Arm] Sitting 02 Sat by Pulse Oximetry 100 Oxygen Delivery Method Room Air
[2023-10-23 20:47] VITALS: BP 121/68; PULSE 74; RESP 20; TEMP 36.6; O2SAT 100
== END 2023-10-23 20:49 | disposition home or self-care (01) ==
PROVIDERS: Emergency Provider Nurse Practitioner; PCP Family Medicine
DX: B37.0 Candidal stomatitis (principal)
CPT/HCPCS: 99212; 99214; G0463

== ENCOUNTER 2023-12-18 18:25 | Emergency (ER) | payer MEDICARE, OTHER, SELFPAY ==
[2023-12-18 18:40] VITALS: BP 139/64; PULSE 72; RESP 20; TEMP 36.8; O2SAT 99; BMI 68.1
--- NOTE | 2023-12-18 19:09 | EXP.UTC ---
Discharge Plan Disposition Patient Disposition: Home, Self-Care Condition: Good Prescriptions Prescriptions: New nystatin 100,000 unit/mL suspension 4 ml buccal QID 10 Days Qty: 160 0RF Rx Instructions: administer 1/2 of dose (2ml) in each side of the mouth, gargle and spit No Action bumetanide 2 mg tablet 2 mg PO BID Patient Comments: TAKE 1 TABLET BY MOUTH TWICE DAILY tizanidine 4 mg tablet 4 mg PO Q8H Patient Comments: TAKE 1 TABLET BY MOUTH EVERY 8 HOURS liothyronine 25 mcg tablet 25 mcg PO AM Patient Comments: TAKE 1 TABLET BY MOUTH ONCE DAILY IN THE MORNING gabapentin 800 mg tablet 3,200 mg PO DAILY Patient Comments: TAKE 4 TABLETS BY MOUTH DAILY glimepiride 4 mg tablet 4 mg PO DAILY Patient Comments: TAKE 2 TABLETS BY MOUTH ONCE DAILY montelukast 10 mg tablet 10 mg PO DAILY Patient Comments: TAKE 1 TABLET BY MOUTH ONCE DAILY pravastatin 20 mg tablet 20 mg PO DAILY Patient Comments: TAKE 1 TABLET BY MOUTH AT BEDTIME metoprolol succinate 25 mg tablet extended release 24 hr 25 mg PO DAILY Patient Comments: TAKE 1 TABLET BY MOUTH ONCE DAILY valsartan 160 mg tablet 160 mg PO DAILY Patient Comments: TAKE 1 TABLET BY MOUTH ONCE DAILY Jardiance 10 mg tablet 10 mg PO DAILY Patient Comments: TAKE 1 TABLET BY MOUTH ONCE DAILY IN THE MORNING fluticasone furoate-vilanterol [Breo Ellipta] 200-25 mcg/dose blister with device 1 ea INHALATION DAILY Patient Comments: INHALE 1 PUFF BY MOUTH ONCE DAILY Rybelsus 14 mg tablet 14 mg PO DAILY Patient Comments: TAKE 1 TABLET BY MOUTH ONCE DAILY Referrals Follow up/Referrals: Giselle Workman [Primary Care Provider] - See instructions Activity Restrictions/Add. Instructions Additional Instructions/Restrictions: To prevent dry mouth, hoarseness, and oral yeast infections from developing after using Breo inhaler, gargle, rinse your mouth with water and spit out after each use. Do not swallow the rinse water. Use Nystatin as prescribed Follow up with your Family Doctor if no improvement or any worsening of symptoms Return if needed Straight to ER if any life threatening symptoms Clinical Impressions Clinical Impression: Thrush Instructions Patient Instructions: Fluticasone and Vilanterol Oral Inhalation, DI for Thrush Print Language Print Language: Kinyarwanda Discharge ED Provider: Chandrika Klein [facility] [place] [facility] [place] H[place] General Stated complaint: throat hurting Mode of Arrival: Ambulatory Source of Information: Patient Limitations: No Limitations Time Seen by Provider: 12/18/23 19:12 Description of Symptoms (Recalled from Triage Doc. by RN): PATIENT C/O SORE THROAT SINCE YESTERDAY. SHE STATES SHE BELIEVES SHE HAS THRUSH HEENT Symptoms (Recalled from RN notes): Yes Resp Symptoms (Recalled from RN notes): No Skin Symptoms (Recalled from RN notes): No MS Symptoms (Recalled from RN notes): No Functional Status (Recalled from RN notes): WNL History of Present Illness Provider Complaint: Patient states that couple months ago she had thrush in the back of her throat and her throat has been hurting, feeling dry and scratchy like it did when she had thrush States that she is not sure what may be causing it but she looked in the back of her throat and seen the white patchy areas starting again so she came in Related Data Home Medications ?Medication ?Instructions ?Recorded ?Confirmed bumetanide 2 mg tablet 2 mg PO BID 12/18/23 12/18/23 empagliflozin 10 mg tablet 10 mg PO DAILY 12/18/23 12/18/23 (Jardiance) fluticasone furoate 200 1 ea inhalation DAILY 12/18/23 12/18/23 mcg-vilanterol 25 mcg/dose inhalation powder (Breo Ellipta) gabapentin 800 mg tablet 3,200 mg PO DAILY 12/18/23 12/18/23 glimepiride 4 mg tablet 4 mg PO DAILY 12/18/23 12/18/23 liothyronine 25 mcg tablet 25 mcg PO AM 12/18/23 12/18/23 metoprolol succinate 25 mg 25 mg PO DAILY 12/18/23 12/18/23 tablet,extended release 24 hr montelukast 10 mg tablet 10 mg PO DAILY 12/18/23 12/18/23 pravastatin 20 mg tablet 20 mg PO DAILY 12/18/23 12/18/23 semaglutide 14 mg tablet (Rybelsus) 14 mg PO DAILY 12/18/23 12/18/23 tizanidine 4 mg tablet 4 mg PO Q8H 12/18/23 12/18/23 valsartan 160 mg tablet 160 mg PO DAILY 12/18/23 12/18/23 Previous Rx's ?Medication ?Instructions ?Recorded nystatin 100,000 unit/mL oral 4 ml buccal QID 10 days #160 mL 12/18/23 suspension Allergies Allergy/AdvReac Type Severity Reaction Status Date / Time aspirin [ASPIRIN] Allergy Unknown Verified 09/02/23 14:01 levofloxacin [From LEVAQUIN] Allergy Unknown Verified 09/02/23 14:01 Penicillins [PENICILLINS] Allergy Unknown Verified 09/02/23 14:01 topiramate [From Topamax] Allergy Verified 09/02/23 14:01 Worker's Comp Is this a Worker's Comp case?: No [facility] Disclaimer: The information contained in this section may have been updated after the patient was seen, as this information can be updated by other users. Medical History Clear vaginal discharge 1 week after her period Cyclical pelvic pain Hypothyroidism HLD (hyperlipidemia) GERD (gastroesophageal reflux disease) T2DM (type 2 diabetes mellitus) COPD (chronic obstructive pulmonary disease) Surgical History H/O section Hx of tonsillectomy Hx of myringotomy Social History Smoking Status: Never smoker alcohol intake: never current occupational status: disabled Travel in the last 8 weeks: None ROS Obtained: Yes All systems reviewed & no additional complaints except as documented and Yes Systems reviewed as appropriate & no additional complaints except as documented Constitutional Constitutional: Reports system reviewed and no additional complaints, except as documented and Reports as per HPI ENT Ears, Nose, Mouth, and Throat: Reports system reviewed and no additional complaints, except as documented, Reports as per HPI and Reports sore throat Cardiovascular Cardiovascular: Reports system reviewed and no additional complaints, except as documented and Reports as per HPI Respiratory Respiratory: Reports system reviewed and no additional complaints, except as documented and Reports as per HPI Gastrointestinal Gastrointestingal: Reports system reviewed and no additional complaints, except as documented and as per HPI Physical Exam General General appearance: alert and in no apparent distress ENT ENT exam: Present mucous membranes moist Expanded ENT Exam Throat exam: Present other (white patchy like areas noted appears like thrush) Respiratory Respiratory exam: Present normal lung sounds bilaterally; Absent respiratory distress or wheezes Cardiovascular Cardiovascular exam: Present regular rate, normal rhythm and normal heart sounds Neurological Exam Neurological exam: Present alert, oriented X3 and normal gait Medical Decision Making Korey Inquiry Pt receiving controlled substance: No Korey was queried for this patient: No Vital Signs: 12/18/23 18:40 Temperature 98.3 F Temperature Source Oral Pulse Rate [Left Brachial] 72 Respiratory Rate 20 Blood Pressure [Left Arm] 139/64 Blood Pressure Mean [Left Arm] 89 Blood Pressure Source [Left Arm] Automatic Cuff Blood Pressure Position [Left Arm] Sitting 02 Sat by Pulse Oximetry 99 Oxygen Delivery Method Room Air Medical Decision Narrative: Patient medications observed and patient is on Breo Ellipta which may be causing her thrush, patient educated to make sure to rinse mouth well after use and spit out the water used to clear mouth that this may be what is leading to her thrush, patient educated that she needs to do this daily when she uses inhaler
[2023-12-18 19:23] VITALS: BP 139/64; PULSE 72; RESP 20; TEMP 36.8; O2SAT 99
[2023-12-18 19:23] LABS: UTC Strep Screen (Rapid) Negative (Negative)
== END 2023-12-18 19:31 | disposition home or self-care (01) ==
PROVIDERS: Emergency Provider Nurse Practitioner; PCP Family Medicine
DX: B37.0 Candidal stomatitis (principal)
CPT/HCPCS: 87880; 99212; 99214; G0463

== ENCOUNTER 2023-12-30 12:59 | Emergency (ER) | payer MEDICARE, OTHER, SELFPAY ==
[2023-12-30 13:01] VITALS: BP 133/110; PULSE 63; RESP 20; TEMP 36.4; O2SAT 95; BMI 65.5
[2023-12-30 13:30] VITALS: BP 113/71; PULSE 71; O2SAT 96
--- NOTE | 2023-12-30 13:54 | PC.NURSE ---
Rounded on pts room and asked if they had any needs. Pt had no needs at this time
[2023-12-30 14:00] VITALS: BP 104/66; PULSE 68; O2SAT 99
--- NOTE | 2023-12-30 14:09 | ED_ITS ---
<Statement entered by Debra Mcfadden MD - 01/01/24 22:45> I was consulted by the RENUKA, and we discussed the complexity of the problems being addressed. I approved the treatment and management plan for this patient's care in the emergency department, thus performing a substantive portion of the medical decision making. Debra Mcfadden MD, NICOLA, FACEP Discharge Plan Disposition Patient Disposition: Home, Self-Care Condition: Good Prescriptions Prescriptions: No Action bumetanide 2 mg tablet 2 mg PO BID Patient Comments: TAKE 1 TABLET BY MOUTH TWICE DAILY tizanidine 4 mg tablet 4 mg PO Q8H Patient Comments: TAKE 1 TABLET BY MOUTH EVERY 8 HOURS liothyronine 25 mcg tablet 25 mcg PO AM Patient Comments: TAKE 1 TABLET BY MOUTH ONCE DAILY IN THE MORNING gabapentin 800 mg tablet 3,200 mg PO DAILY Patient Comments: TAKE 4 TABLETS BY MOUTH DAILY glimepiride 4 mg tablet 4 mg PO DAILY Patient Comments: TAKE 2 TABLETS BY MOUTH ONCE DAILY montelukast 10 mg tablet 10 mg PO DAILY Patient Comments: TAKE 1 TABLET BY MOUTH ONCE DAILY pravastatin 20 mg tablet 20 mg PO DAILY Patient Comments: TAKE 1 TABLET BY MOUTH AT BEDTIME metoprolol succinate 25 mg tablet extended release 24 hr 25 mg PO DAILY Patient Comments: TAKE 1 TABLET BY MOUTH ONCE DAILY valsartan 160 mg tablet 160 mg PO DAILY Patient Comments: TAKE 1 TABLET BY MOUTH ONCE DAILY Jardiance 10 mg tablet 10 mg PO DAILY Patient Comments: TAKE 1 TABLET BY MOUTH ONCE DAILY IN THE MORNING fluticasone furoate-vilanterol [Breo Ellipta] 200-25 mcg/dose blister with device 1 ea INHALATION DAILY Patient Comments: INHALE 1 PUFF BY MOUTH ONCE DAILY Rybelsus 14 mg tablet 14 mg PO DAILY Patient Comments: TAKE 1 TABLET BY MOUTH ONCE DAILY nystatin 100,000 unit/mL suspension 4 ml buccal QID 10 Days Qty: 160 0RF Rx Instructions: administer 1/2 of dose (2ml) in each side of the mouth, gargle and spit Referrals Follow up/Referrals: Giselle Workman [Primary Care Provider] - See instructions Activity Restrictions/Add. Instructions Additional Instructions/Restrictions: Please call and establish a follow-up appointment with cardiology for syncope. While this is likely noncardiogenic and has not been ruled out completely. Additionally ask your PCP to make a referral for upper endoscopy for evaluation of your periodic dysphagia. Return to ER for any worsening signs or symptoms as needed. Clinical Impressions Clinical Impression: Syncope, vasovagal, Hematoma Dysphagia Qualifiers: Dysphagia type: unspecified Qualified Code(s): R13.10 - Dysphagia, unspecified Instructions Patient Instructions: DI for Syncope in Adults (Fainting), DI for Closed Head Injury Print Language Print Language: Sinhala Discharge ED Provider: Cherry Galindo General Adult HPI General Chief complaint: Fall Stated complaint: AO- Fall 12/29 hit head Time Seen by Provider: 12/30/23 14:09 Mode of Arrival: Wheelchair Source of Information: Patient Limitations: No Limitations Description of Symptoms (Recalled from ER Triage Doc. by RN): Patient states she got choked on her medication this morning and fell forward out of bed. States she woke up face first on the floor. Complaint of right sided head and right knee pain from the fall. Reports that she just wants to make sure she doesn't have a concusion. History of Present Illness HPI narrative: Patient presents for evaluation of a syncopal event. Patient was sitting on the side of her bed taking her morning medicine and reports that she got vapor locked while swallowing water. She had a syncopal event falling forward and awoke on the floor. She struck her forehead. She was unable to arise due to body habitus as the patient weighs over 190 kg. Once she was upright she was able to stand and noticed that she had bruises on her bilateral knees and a small hematoma above the right eye on the forehead. She denies any neck pain back pain headache change in vision or senses. Related Data Home Medications ?Medication ?Instructions ?Recorded ?Confirmed bumetanide 2 mg tablet 2 mg PO BID 12/18/23 12/18/23 empagliflozin 10 mg tablet 10 mg PO DAILY 12/18/23 12/18/23 (Jardiance) fluticasone furoate 200 1 ea inhalation DAILY 12/18/23 12/18/23 mcg-vilanterol 25 mcg/dose inhalation powder (Breo Ellipta) gabapentin 800 mg tablet 3,200 mg PO DAILY 12/18/23 12/18/23 glimepiride 4 mg tablet 4 mg PO DAILY 12/18/23 12/18/23 liothyronine 25 mcg tablet 25 mcg PO AM 12/18/23 12/18/23 metoprolol succinate 25 mg 25 mg PO DAILY 12/18/23 12/18/23 tablet,extended release 24 hr montelukast 10 mg tablet 10 mg PO DAILY 12/18/23 12/18/23 pravastatin 20 mg tablet 20 mg PO DAILY 12/18/23 12/18/23 semaglutide 14 mg tablet (Rybelsus) 14 mg PO DAILY 12/18/23 12/18/23 tizanidine 4 mg tablet 4 mg PO Q8H 12/18/23 12/18/23 valsartan 160 mg tablet 160 mg PO DAILY 12/18/23 12/18/23 Previous Rx's ?Medication ?Instructions ?Recorded nystatin 100,000 unit/mL oral 4 ml buccal QID 10 days #160 mL 12/18/23 suspension Allergies Allergy/AdvReac Type Severity Reaction Status Date / Time aspirin [ASPIRIN] Allergy Unknown Verified 09/02/23 14:01 levofloxacin [From LEVAQUIN] Allergy Unknown Verified 09/02/23 14:01 Penicillins [PENICILLINS] Allergy Unknown Verified 09/02/23 14:01 topiramate [From Topamax] Allergy Verified 09/02/23 14:01 [facility] Disclaimer: The information contained in this section may have been updated after the patient was seen, as this information can be updated by other users. Medical History Clear vaginal discharge 1 week after her period Cyclical pelvic pain Hypothyroidism HLD (hyperlipidemia) GERD (gastroesophageal reflux disease) T2DM (type 2 diabetes mellitus) COPD (chronic obstructive pulmonary disease) Surgical History H/O section Hx of tonsillectomy Hx of myringotomy Social History Smoking Status: Never smoker alcohol intake: never current occupational status: disabled Travel in the last 8 weeks: None ROS Obtained: Yes Systems reviewed as appropriate & no additional complaints except as documented Physical Exam General General appearance: alert and in no apparent distress Head Head exam: other (Patient has a hematoma above the right eye above the supraorbital ridge with no bony deformity noted. Skin is intact.) Eye Eye exam: Present normal appearance, PERRL and EOMI (No pain with extraocular movement) ENT ENT exam: Present normal exam, normal oropharynx and mucous membranes moist Neck Neck exam: Present normal inspection and full ROM; Absent tenderness Chest Chest inspection: Present normal inspection and symmetric chest wall rise; Absent tenderness Respiratory Respiratory exam: Present normal lung sounds bilaterally Cardiovascular Cardiovascular exam: Present regular rate and normal rhythm Abdominal Exam Abdominal exam: Absent normal bowel sounds Extremities Exam Extremities exam: Present full ROM and tenderness (Bilateral proximal tibia/knee with ecchymosis in both locations but no bony deformity noted patient. Has full range of motion) Back Exam Back exam: Present normal inspection and full ROM; Absent tenderness Neurological Exam Neurological exam: Present alert, oriented X3 and CN II-XII intact; Absent motor sensory deficit Psychiatric Psychiatric exam: Present normal affect and normal mood Medical Decision Making Medical Records Medical records reviewed: Yes I reviewed the patient's medical records. Korey Inquiry Pt receiving controlled substance: No Vital Signs: 12/30/23 13:01 12/30/23 13:30 12/30/23 14:00 Temperature 97.6 F Temperature Source Oral Pulse Rate 71 68 Pulse Rate [Radial] 63 Respiratory Rate 20 Blood Pressure 113/71 104/66 L Blood Pressure [Right Arm] 133/110 H Blood Pressure Mean 85 78 Blood Pressure Mean [Right Arm] 117 Blood Pressure Source Blood Pressure Source [Right Arm] Automatic Cuff Blood Pressure Position Blood Pressure Position [Right Arm] Sitting 02 Sat by Pulse Oximetry 95 96 99 Oxygen Delivery Method Room Air Room Air Room Air 12/30/23 14:15 12/30/23 17:00 12/30/23 17:43 Temperature 97.9 F Temperature Source Oral Pulse Rate 64 67 64 Pulse Rate [Radial] Respiratory Rate 22 18 Blood Pressure 115/53 L Blood Pressure [Right Arm] Blood Pressure Mean Blood Pressure Mean [Right Arm] Blood Pressure Source Automatic Cuff Blood Pressure Source [Right Arm] Blood Pressure Position Sitting Blood Pressure Position [Right Arm] 02 Sat by Pulse Oximetry 98 99 Oxygen Delivery Method Room Air Room Air Room Air Lab Data Lab results reviewed: Yes I reviewed the patient's lab results. Lab Results 12/30/23 14:30: WBC 12.0 H, RBC 4.21, Hgb 13.4, Hct 42.3, MCV 100.6 H, MCH 31.9 H, MCHC 31.7 L, RDW 13.6, Plt Count 368, MPV 8.1, Neut % (Auto) 81.1 H, Lymph % (Auto) 10.7, [place] % (Auto) 4.0, Eos % (Auto) 3.6, Baso % (Auto) 0.7, Neut # (Auto) 9.7 H, Lymph # (Auto) 1.3, [place] # (Auto) 0.5, Eos # (Auto) 0.4, Baso # (Auto) 0.1, PT 10.5, INR 0.93, Sodium 139, Potassium 4.3, Chloride 103, Carbon Dioxide 29, Anion Gap 11.3, BUN 31 H, Creatinine 1.80 H, Estimated Creat Clear 39, Estimated GFR 30 L, Est GFR ( Amer) 36 L, Glucose 197 H, Calcium 9.4, Magnesium 2.4 H, Total Bilirubin 0.8, AST 35, ALT 41, Alkaline Phosphatase 155 H , Troponin I < 0.01, Total Protein 8.4 H, Albumin 4.3, Globulin 4.1 H, A lbumin/Globulin Ratio 1.0 L 12/30/23 14:30 12/30/23 14:30 Orders (Tests/Meds): ED MEDICATIONS Discontinued Medications Generic Name Dose Route Start Last Admin Trade Name Freq PRN Reason Stop Dose Admin Acetaminophen 1,000 mg 12/30/23 14:22 12/30/23 14:57 Acetaminophen 1,000mg/100ml Vial IV 12/30/23 14:23 Not Given ONCE ONE Hydromorphone HCl 0.5 mg 12/30/23 16:25 12/30/23 16:27 Hydromorphone 2mg/Ml Syringe IV 12/30/23 16:26 0.5 mg ONCE ONE Administration Lactated Ringer's 1,000 mls @ 999 mls/hr 12/30/23 14:22 12/30/23 14:54 Lactated Ringer's 1000 Ml Bag IV 12/30/23 15:22 999 mls/hr .Q1H1M ONE Administration Iopamidol 180 ml 12/30/23 16:07 12/30/23 16:08 Iopamidol-370 (76%);100ml Bottle IV 12/30/23 16:08 180 ml ONCE ONE Administration Sodium Chloride 10 ml 12/30/23 16:07 12/30/23 16:08 Sodium Chloride 0.9% 10ml Syr (Rad Only) IV 12/30/23 16:08 10 ml ONCE ONE Administration Sodium Chloride 50 ml 12/30/23 16:07 12/30/23 16:08 0.9 % Sodium Chloride 50 Ml Vial IV 12/30/23 16:08 50 ml ONCE ONE Administration ORDERS Category Date Time Status CT angio chest - dissection Stat Cat Scan 12/30/23 14:[address] angio head Stat Cat Scan 12/30/23 14:[address] angio neck Stat Cat Scan 12/30/23 14:[address] cervical spine wo con Stat Cat Scan 12/30/23 14:[address] facial bones wo con Stat Cat Scan 12/30/23 14:[address] head/brain wo con Stat Cat Scan 12/30/23 14:[address] thoracic spine wo con Stat Cat Scan 12/30/23 14:24 Completed Chest XR 2 view (NOT portable) [XR chest 2V] Stat Exams 12/30/23 14:23 Completed Femur XR left 2 views [XR femur LT 2V] Stat Exams 12/30/23 14:25 Completed Femur XR right 2 views [XR femur RT 2V] Stat Exams 12/30/23 14:25 Completed Knee XR left 3 views [XR knee LT 3V] Stat Exams 12/30/23 14:25 Completed Tibia/fibula XR left 2 views [XR tibia fibula LT 2V] Exams 12/30/23 14:25 Completed Stat Tibia/fibula XR right 2 views [XR tibia fibula RT 2V] Exams 12/30/23 14:25 Completed Stat XR knee RT 3V Stat Exams 12/30/23 14:25 Completed CBC w/Auto Diff [Complete Blood Count Auto Diff] Stat Lab 12/30/23 14:30 Completed CMP [Comprehensive Metabolic Panel] Stat Lab 12/30/23 14:30 Completed INR [Prothrombin Time INR] Stat Lab 12/30/23 14:30 Completed Magnesium Stat Lab 12/30/23 14:30 Completed Trop I [Troponin I] Stat Lab 12/30/23 14:30 Completed Medical Decision Narrative: In summary patient is a 48-year-old female who presents to the emergency department for evaluation of syncope. Patient is hemodynamically stable upon arrival, afebrile. Sickle exam is remarkable for hematoma above the supraorbital ridge on the right forehead with no bony deformity. Patient also has ecchymosis to the bilateral proximal shins/knee area with no bony deformity. Patient has full range of motion. Patient has no dorsal spine tenderness.. Differential diagnosis includes vasovagal syncope versus intracranial bleed versus skull fracture versus other bony fracture etc.. Initial workup will be conducted with EKG plain from chest x-ray trauma scans hematologic lab. Initial interventions include crystalloid bolus half milligram of Dilaudid. Initial workup reviewed by me shows that her hematologic labs are nonactionable, EKG shows normal sinus rhythm, plain film chest x-ray shows no acute processes via my informal read, CT scans prior to radiology read shows by my informal interpretation of no acute processes in the head chest abdomen and spines. Upon repeat evaluation patient had significant improvement in her pain and is ambulatory prior to discharge. Given this patient is appropriate for discharge with strict return precautions for closed head injury. Critical Care Critical Care Time Critical Care Time: No
[2023-12-30 14:15] VITALS: PULSE 64; O2SAT 98
--- NOTE | 2023-12-30 14:23 | XR_ITS ---
PROCEDURE INFORMATION: Exam: XR Chest Exam date and time: 12/30/2023 4:05 PM Age: 48 years old Clinical indication: Injury or trauma; Fall; Blunt trauma (contusions or hematomas); Additional info: Syncope and collapse TECHNIQUE: Imaging protocol: Radiologic exam of the chest. Views: 2 views. COMPARISON: CT ANGIO CHEST PE PROTOCOL 10/08/2022 11:49 AM FINDINGS: Lungs: No evidence of acute pulmonary disease or infiltrates Pleural spaces: No large effusion or pneumothorax. Heart/Mediastinum: Stable cardiac and mediastinal contours. Diaphragm: There is elevation of the right hemidiaphragm. Bones/joints: No evidence of acute osseous abnormalities within the visualized portions of the thoracic spine and ribs. Osseous structures appear appropriate for patient age. IMPRESSION: No dense parenchymal consolidation, pleural effusion, or pneumothorax.
--- NOTE | 2023-12-30 14:24 | CT_ITS ---
PROCEDURE INFORMATION: Exam: CT Cervical Spine Without Contrast Exam date and time: 12/30/2023 3:49 PM Age: 48 years old Clinical indication: Injury or trauma; Fall; Blunt trauma; Additional info: Trauma, critical injury suspected TECHNIQUE: Imaging protocol: Computed tomography of the cervical spine without contrast. Radiation optimization: All CT scans at this facility use at least one of these dose optimization techniques: automated exposure control; mA and/or kV adjustment per patient size (includes targeted exams where dose is matched to clinical indication); or iterative reconstruction. COMPARISON: 1. CT FACIAL BONES WO CON 12/30/2023 3:[address] ANGIO CHEST PE PROTOCOL 10/08/2022 11:49 AM FINDINGS: Bones: There is straightening of the normal spinal curvature. The cervical spine shows relatively preserved alignment of the vertebral bodies with no evidence of acute fractures or dislocations. However, age-related degenerative changes are observed, including mild disc space narrowing and osteophyte formation at multiple levels. These findings are consistent with age related degenerative disease. Lungs: Lung apices are normal. Soft tissues: Unremarkable. IMPRESSION: Multilevel degenerative change without acute injury identified.
--- NOTE | 2023-12-30 14:24 | CT_ITS ---
PROCEDURE INFORMATION: Exam: CTA Chest With Contrast Exam date and time: 12/30/2023 4:10 PM Age: 48 years old Clinical indication: Injury or trauma; Fall; Blunt trauma (contusions or hematomas); Additional info: Trauma, critical injury suspected TECHNIQUE: Imaging protocol: Computed tomographic angiography of the chest with contrast. Exam focused on the arteries. 3D rendering (Not supervised by radiologist): MIP and/or 3D reconstructed images were created by the technologist. Radiation optimization: All CT scans at this facility use at least one of these dose optimization techniques: automated exposure control; mA and/or kV adjustment per patient size (includes targeted exams where dose is matched to clinical indication); or iterative reconstruction. Contrast material: ISO 370; Contrast volume: 100 ml; Contrast route: INTRAVENOUS (IV); COMPARISON: 1. CT ANGIO CHEST PE PROTOCOL 10/08/2022 11:49 AM 2. CR CXR CHEST(2 VIEWS-NOT PORTABLE) 05/24/2017 5:[address] ANGIO NECK 12/30/2023 3:57 PM FINDINGS: Pulmonary arteries: Normal. No pulmonary emboli. Aorta: There is atherosclerotic disease of the visualized aorta and its major branch vessels. Lungs: There are scattered calcified granulomas in the lungs which most likely reflect prior granulomatous disease. Scattered areas of bronchial wall thickening which are likely chronic inflammatory. A few areas of subpleural reticulation are noted, nonspecific. There are scattered areas of emphysema throughout the lungs. Pleural spaces: Unremarkable. No pneumothorax. No pleural effusion. Heart: Unremarkable. No cardiomegaly. No pericardial effusion. Lymph nodes: Unremarkable. No enlarged lymph nodes. Bones/joints: There is diffuse degenerative disease of the visualized osseous structures. Please see the dedicated interpretation of the spine for findings in that region. Suspect bone island in the left 5th rib. Soft tissues: Unremarkable. IMPRESSION: No acute traumatic injury is identified.
--- NOTE | 2023-12-30 14:24 | CT_ITS ---
PROCEDURE INFORMATION: Exam: CTA Head With Contrast, Arteriography Exam date and time: 12/30/2023 3:57 PM Age: 48 years old Clinical indication: Injury or trauma; Fall; Blunt trauma; Head; Additional info: Trauma, critical injury suspected TECHNIQUE: Imaging protocol: Computed tomographic angiography of the head with contrast. Exam focused on the arteries. 3D rendering (Not supervised by radiologist): MIP and/or 3D reconstructed images were created by the technologist. Radiation optimization: All CT scans at this facility use at least one of these dose optimization techniques: automated exposure control; mA and/or kV adjustment per patient size (includes targeted exams where dose is matched to clinical indication); or iterative reconstruction. Contrast material: ISO 370; Contrast volume: 100 ml; Contrast route: INTRAVENOUS (IV); COMPARISON: 1. CT HEAD/BRAIN WO CON 12/30/2023 3:[address] FACIAL BONES WO CON 12/30/2023 3:45 PM FINDINGS: ANTERIOR CIRCULATION: Right internal carotid artery: Intracranial segment is patent with no significant stenosis. No aneurysm. Right middle cerebral artery: No occlusion or significant stenosis. No aneurysm. Right anterior cerebral artery: No occlusion or significant stenosis. No aneurysm. Left internal carotid artery: Intracranial segment is patent with no significant stenosis. No aneurysm. Left middle cerebral artery: No occlusion or significant stenosis. No aneurysm. Left anterior cerebral artery: No occlusion or significant stenosis. No aneurysm. POSTERIOR CIRCULATION: Right vertebral artery: No occlusion or significant stenosis. No aneurysm. Left vertebral artery: No occlusion or significant stenosis. No aneurysm. Basilar artery: No occlusion or significant stenosis. No aneurysm. Right posterior cerebral artery: No occlusion or significant stenosis. No aneurysm. Left posterior cerebral artery: No occlusion or significant stenosis. No aneurysm. Brain: No definite mass, mass effect, or midline shift. Cerebral ventricles: No ventriculomegaly. Teeth: There is dental amalgam which causes streak artifact and mildly limits evaluation of the oral cavity. Bones/joints: Unremarkable. No acute fracture. There is moderate soft tissue swelling associated with the right frontal calvarium without underlying abnormality seen. Soft tissues: Unremarkable. IMPRESSION: No large vessel stenosis or occlusion.
--- NOTE | 2023-12-30 14:24 | CT_ITS ---
PROCEDURE INFORMATION: Exam: CT Head Without Contrast Exam date and time: 12/30/2023 3:57 PM Age: 48 years old Clinical indication: Injury or trauma; Fall; Blunt trauma (contusions or hematomas); Consciousness not specified; Additional info: Trauma, critical injury suspected TECHNIQUE: Imaging protocol: Computed tomography of the head without contrast. Radiation optimization: All CT scans at this facility use at least one of these dose optimization techniques: automated exposure control; mA and/or kV adjustment per patient size (includes targeted exams where dose is matched to clinical indication); or iterative reconstruction. COMPARISON: 1. CT ANGIO HEAD 12/30/2023 3:[address] FACIAL BONES WO CON 12/30/2023 3:45 PM FINDINGS: Brain: See Bones finding. Cerebral ventricles: No ventriculomegaly. Paranasal sinuses: Visualized sinuses are unremarkable. No fluid levels. Mastoid air cells: Visualized mastoid air cells are well aerated. Bones: Moderate soft tissue swelling associated with the right frontal calvarium without underlying osseous injury or intracranial hemorrhage. Soft tissues: See Bones finding. IMPRESSION: Moderate soft tissue swelling associated with the right frontal calvarium without underlying osseous injury or intracranial hemorrhage.
--- NOTE | 2023-12-30 14:24 | CT_ITS ---
PROCEDURE INFORMATION: Exam: CTA Neck With Contrast Exam date and time: 12/30/2023 3:57 PM Age: 48 years old Clinical indication: Injury or trauma; Fall; Blunt trauma; Head; Additional info: Trauma, critical injury suspected TECHNIQUE: Imaging protocol: Computed tomographic angiography of the neck with contrast. Exam focused on the cervical segments of the vasculature. 3D rendering (Not supervised by radiologist): MIP and/or 3D reconstructed images were created by the technologist. Radiation optimization: All CT scans at this facility use at least one of these dose optimization techniques: automated exposure control; mA and/or kV adjustment per patient size (includes targeted exams where dose is matched to clinical indication); or iterative reconstruction. Contrast material: ISO 370; Contrast volume: 100 ml; Contrast route: INTRAVENOUS (IV); COMPARISON: 1. CT CERVICAL SPINE WO CON 12/30/2023 3:[address] ANGIO HEAD 12/30/2023 3:[address] ANGIO CHEST PE PROTOCOL 10/08/2022 11:49 AM FINDINGS: Right common carotid artery: No stenosis. No dissection or occlusion. Right internal carotid artery: No stenosis of the extracranial segment. No dissection or occlusion. Right external carotid artery: No occlusion or stenosis of the origin. Left common carotid artery: No stenosis. No dissection or occlusion. Left internal carotid artery: No stenosis of the extracranial segment. No dissection or occlusion. Left external carotid artery: No occlusion or stenosis of the origin. Right vertebral artery: No stenosis. No dissection or occlusion. Left vertebral artery: No stenosis. No dissection or occlusion. Soft tissues: Normal. No significant soft tissue swelling. Bones/joints: No acute fracture. IMPRESSION: No evidence for traumatic injury of the cervical vasculature REFERENCES: NASCET CRITERIA. The degree of stenosis in the cervical segment of the internal carotid artery is based on NASCET criteria. Normal is no stenosis. Mild is less than 50% stenosis. Moderate is 50-69% stenosis. Severe is 70% to 99% stenosis. Total occlusion is no detectable patent lumen.
--- NOTE | 2023-12-30 14:24 | CT_ITS ---
PROCEDURE INFORMATION: Exam: CT Thoracic Spine Without Contrast Exam date and time: 12/30/2023 3:52 PM Age: 48 years old Clinical indication: Injury or trauma; Fall; Blunt trauma (contusions or hematomas); Additional info: Trauma, critical injury suspected TECHNIQUE: Imaging protocol: Computed tomography of the thoracic spine without contrast. Radiation optimization: All CT scans at this facility use at least one of these dose optimization techniques: automated exposure control; mA and/or kV adjustment per patient size (includes targeted exams where dose is matched to clinical indication); or iterative reconstruction. COMPARISON: 1. CT CERVICAL SPINE WO CON 12/30/2023 3:[address] ANGIO CHEST PE PROTOCOL 10/08/2022 11:49 AM 3. CR CXR CHEST(2 VIEWS-NOT PORTABLE) 05/24/2017 5:50 PM FINDINGS: Bones/joints: There is a suspected intraosseous hemangioma in the T12 vertebral body. No evidence of acute spondylolisthesis or vertebral subluxation. Vertebral body heights are generally preserved, but some endplate sclerosis and anterior osteophytes are noted at multiple levels. Narrowing of multiple intervertebral disc spaces observed, indicative of degenerative disc disease. Hypertrophic changes are seen in the facet joints, consistent with osteoarthritis. No fractures or bony lesions identified. No abnormalities seen in adjacent osseous structures. Soft tissues: Unremarkable. Other findings: No obvious abnormalities seen in the prevertebral and paravertebral soft tissues. Motion artifact mildly limits evaluation. IMPRESSION: Degenerative changes without acute abnormality detected.
--- NOTE | 2023-12-30 14:25 | XR_ITS ---
PROCEDURE INFORMATION: Exam: XR Right Femur Exam date and time: 12/30/2023 4:25 PM Age: 48 years old Clinical indication: Injury or trauma; Fall; Blunt trauma; Thigh or upper leg; Right; Additional info: Syncope and collapse TECHNIQUE: Imaging protocol: Radiologic exam of the right femur. Views: 2 views. COMPARISON: CR XR KNEE RT 3V 12/30/2023 4:25 PM FINDINGS: Bones/joints: The osseous structures are intact, with no signs of acute fracture, dislocation, or malalignment. Age-related degenerative changes are observed. There is no evidence of abnormal bone density or destructive lesions. Soft tissues: The soft tissues appear within normal limits. Other findings: The examination is limited by under penetration. IMPRESSION: At the time of imaging, the study shows no acute osseous abnormalities but does reveal signs of age-related degenerative changes.
--- NOTE | 2023-12-30 14:25 | XR_ITS ---
PROCEDURE INFORMATION: Exam: XR Right Knee Exam date and time: 12/30/2023 4:25 PM Age: 48 years old Clinical indication: Injury or trauma; Fall; Blunt trauma; Knee; Right; Additional info: Syncope and collapse TECHNIQUE: Imaging protocol: Radiologic exam of the right knee. Views: 3 views. COMPARISON: CR Knee R 12/12/2018 2:07 PM FINDINGS: Bones/joints: There is tricompartmental osteoarthritis of the knee with loss of joint space, subchondral sclerosis, and productive changes. The osseous structures are intact, with no signs of acute fracture, dislocation, or malalignment. There is no evidence of abnormal bone density or destructive lesions. Soft tissues: The soft tissues appear within normal limits. IMPRESSION: At the time of imaging, the study shows no acute osseous abnormalities but does reveal signs of tricompartmental osteoarthritis.
--- NOTE | 2023-12-30 14:25 | XR_ITS ---
PROCEDURE INFORMATION: Exam: XR Left Tibia and Fibula Exam date and time: 12/30/2023 4:25 PM Age: 48 years old Clinical indication: Injury or trauma; Fall; Blunt trauma; Lower leg; Left; Additional info: Syncope and collapse TECHNIQUE: Imaging protocol: Radiologic exam of the left tibia and fibula. Views: 2 views. COMPARISON: CR XR ANKLE WT BEARING LT MIN 3V 12/11/2022 10:25 AM FINDINGS: Bones/joints: Significant degenerative disease of the and ankle. The osseous structures are intact, with no signs of acute fracture, dislocation, or malalignment. Age-related degenerative changes are observed. There is no evidence of abnormal bone density or destructive lesions. Soft tissues: Extensive calcification of the subcutaneous tissues is noted. The soft tissues appear within normal limits. IMPRESSION: At the time of imaging, the study shows no acute osseous abnormalities but does reveal signs of age-related degenerative changes.
--- NOTE | 2023-12-30 14:25 | CT_ITS ---
PROCEDURE INFORMATION: Exam: CT Maxillofacial Without Contrast Exam date and time: 12/30/2023 3:45 PM Age: 48 years old Clinical indication: Injury or trauma; Fall; Blunt trauma (contusions or hematomas); Forehead; Additional info: Trauma, critical injury suspected TECHNIQUE: Imaging protocol: Computed tomography of the face without contrast. Radiation optimization: All CT scans at this facility use at least one of these dose optimization techniques: automated exposure control; mA and/or kV adjustment per patient size (includes targeted exams where dose is matched to clinical indication); or iterative reconstruction. COMPARISON: CT FACIAL BONES WO CON 12/30/2023 3:45 PM FINDINGS: Orbital cavities: Orbits are normal. Globes are unremarkable. Paranasal sinuses: Normal. No air-fluid levels. There are scattered areas of sinus mucosal thickening. Nasal cavity: There is rightward deviation of the bony nasal septum. Bones: There is moderate soft tissue swelling associated with the right frontal calvarium without underlying osseous injury identified. Soft tissues: See Bones finding. IMPRESSION: There is moderate soft tissue swelling associated with the right frontal calvarium without underlying osseous injury identified.
--- NOTE | 2023-12-30 14:25 | XR_ITS ---
PROCEDURE INFORMATION: Exam: XR Left Femur Exam date and time: 12/30/2023 4:25 PM Age: 48 years old Clinical indication: Injury or trauma; Fall; Blunt trauma; Thigh or upper leg; Left; Additional info: Syncope and collapse TECHNIQUE: Imaging protocol: Radiologic exam of the left femur. Views: 2 views. COMPARISON: CR XR KNEE LT 3V 12/30/2023 4:25 PM FINDINGS: Bones/joints: The osseous structures are intact, with no signs of acute fracture, dislocation, or malalignment. Age-related degenerative changes are observed. There is no evidence of abnormal bone density or destructive lesions. Soft tissues: The soft tissues appear within normal limits. Other findings: The examination is limited by under penetration. IMPRESSION: At the time of imaging, the study shows no acute osseous abnormalities but does reveal signs of age-related degenerative changes.
--- NOTE | 2023-12-30 14:25 | XR_ITS ---
PROCEDURE INFORMATION: Exam: XR Right Tibia and Fibula Exam date and time: 12/30/2023 4:25 PM Age: 48 years old Clinical indication: Injury or trauma; Fall; Blunt trauma; Lower leg; Right; Additional info: Syncope and collapse TECHNIQUE: Imaging protocol: Radiologic exam of the right tibia and fibula. Views: 2 views. COMPARISON: CR XR FOOT RT MIN 3V 02/16/2021 4:34 PM FINDINGS: Bones/joints: The osseous structures are intact, with no signs of acute fracture, dislocation, or malalignment. Age-related degenerative changes are observed. There is no evidence of abnormal bone density or destructive lesions. Soft tissues: The soft tissues appear within normal limits. IMPRESSION: At the time of imaging, the study shows no acute osseous abnormalities but does reveal signs of age-related degenerative changes.
--- NOTE | 2023-12-30 14:25 | XR_ITS ---
PROCEDURE INFORMATION: Exam: XR Left Knee Exam date and time: 12/30/2023 4:25 PM Age: 48 years old Clinical indication: Injury or trauma; Fall; Blunt trauma; Knee; Left; Additional info: Syncope and collapse TECHNIQUE: Imaging protocol: Radiologic exam of the left knee. Views: 3 views. COMPARISON: CR XR KNEE LT 3V 12/15/2022 3:16 PM FINDINGS: Bones/joints: There is tricompartmental osteoarthritis of the knee with loss of joint space, subchondral sclerosis, and productive changes. The osseous structures are intact, with no signs of acute fracture, dislocation, or malalignment. There is no evidence of abnormal bone density or destructive lesions. Soft tissues: The soft tissues appear within normal limits. IMPRESSION: At the time of imaging, the study shows no acute osseous abnormalities but does reveal signs of tricompartmental osteoarthritis.
--- NOTE | 2023-12-30 14:27 | PC.NURSE ---
I accompanied pt to the bathroom.
[2023-12-30 14:51] LABS: Basophils # 0.1 K/mm3 (0-0.2); Basophils % 0.7 % (0.1-2.0); Eosinophils # 0.4 K/mm3 (0.0-0.4); Eosinophils % 3.6 % (0.1-12.0); Hematocrit 42.3 % (37.0-47.0); Hemoglobin 13.4 g/dL (12.2-16.2); Lymphocytes # 1.3 K/mm3 (0.7-4.5); Lymphocytes % 10.7 % (10-50); Mean Corpuscular HGB Conc 31.7 g/dL (31.8-35.4); Mean Corpuscular Hemoglobin 31.9 pg (27.0-31.2); Mean Corpuscular Volume 100.6 fl (81-99); Mean Platelet Volume 8.1 fl (7.4-10.4); Monocytes # 0.5 K/mm3 (0.1-1.0); Neutrophils # 9.7 K/mm3 (1.8-7.8); Neutrophils % 81.1 % (37.0-80.0); Platelet Count 368 K/mm3 (142-424); Red Blood Count 4.21 M/mm3 (4.20-5.40); Red Cell Distribution Width 13.6 % (11.5-17.5)
[2023-12-30] MEDS: LACTATED RINGERS 1000ML 1,000 ML 999 ML IV (14:54)
[2023-12-30 15:01] LABS: Albumin Level 4.3 g/dl (3.5-5.0); Chloride 103 mmol/L (98-107); Sodium 139 mmol/L (136-145)
[2023-12-30 15:02] LABS: Potassium 4.3 mmoL/L (3.5-5.1)
--- NOTE | 2023-12-30 15:03 | ECG_ITS ---
APPROVED REPORT Exam: Resting ECG HR:59 bpm ECG Measurements Heart Rate 59 AXES NJ 216 P 74 QRSd 89 QRS 67 QT 420 T 50 QTc 419 Conclusion SINUS BRADYCARDIA WITH FIRST DEGREE AV BLOCK LOW QRS VOLTAGE IN PRECORDIAL LEADS [QRS DEFLECTION < 1.0 mV IN CHEST LEADS] ANTEROSEPTAL MYOCARDIAL INFARCTION , OF INDETERMINATE AGE [40+ ms Q WAVE IN V1-V4] ABNORMAL ECG Electronically signed by : ASHELY RHOADES, 12/30/2023 17:01:18
[2023-12-30 15:04] LABS: Alanine Aminotransferase 41 U/L (12-78); Alkaline Phosphatase 155 U/L (38-126); Anion Gap 11.3 mEq/L (5-15); Aspartate Amino Transferase 35 U/L (14-36); Bilirubin,Total 0.8 mg/dl (0.2-1.3); Blood Urea Nitrogen 31 mg/dl (7-17); Calcium 9.4 mg/dl (8.4-10.2); Carbon Dioxide 29 mmol/L (22.0-30.0); Creatinine Clearance Estimated 39 mL/min (50-200); Estimated Glomerular Filt Rate 30 ml/min (>60); GFR (African American) 36 ML/MIN (>60); Globulin 4.1 g/dL (1.3-3.2); Glucose 197 mg/dl (74-100); INR 0.93 (0.9-1.1); Magnesium 2.4 mg/dl (1.6-2.3); Prothrombin Time 10.5 seconds (10.1-12.5); Total Protein,Serum 8.4 g/dl (6.3-8.2)
[2023-12-30 15:48] LABS: Troponin I < 0.01 ng/ml (0.00-0.034)
[2023-12-30] MEDS: IOPAMIDOL-370 (76%);100ML BOTTLE 180 ML IV (16:08)
[2023-12-30] MEDS: 0.9 % SODIUM CHLORIDE 50 ML VIAL IV (16:08)
[2023-12-30] MEDS: SODIUM CHLORIDE 0.9% 10ML SYR (RAD ONLY) 10 ML IV (16:08)
[2023-12-30] MEDS: HYDROMORPHONE 2MG/ML SYRINGE 0.5 MG IV (16:27)
[2023-12-30 17:00] VITALS: PULSE 67; RESP 22; O2SAT 99
[2023-12-30 17:43] VITALS: BP 115/53; PULSE 64; RESP 18; TEMP 36.6; O2SAT 99
== END 2023-12-30 17:50 | disposition home or self-care (01) ==
PROVIDERS: Physician Assistant; Emergency Provider Emergency Medicine; PCP Family Medicine
DX: S09.90XA Unspecified injury of head, initial encounter (principal); S00.83XA Contusion of other part of head, initial encounter; R55 Syncope and collapse; M25.561 Pain in right knee; M25.562 Pain in left knee; W06.XXXA Fall from bed, initial encounter; E11.9 Type 2 diabetes mellitus without complications; K21.9 Gastro-esophageal reflux disease without esophagitis; I10 Essential (primary) hypertension; E78.5 Hyperlipidemia, unspecified; E03.9 Hypothyroidism, unspecified; J44.9 Chronic obstructive pulmonary disease, unspecified; Z79.84 Long term (current) use of oral hypoglycemic drugs; E66.01 Morbid (severe) obesity due to excess calories; Z68.44 Body mass index [BMI] 60.0-69.9, adult
CPT/HCPCS: 70450; 70486; 70496; 70498; 71046; 71275; 72125; 72128; 73552; 73562; 73590; 80053; 83735; 84484; 85025; 85610; 93005; 96361; 96374; 96375; 99285; J0131; J1170; J7120; Q9967

== ENCOUNTER 2024-08-24 17:00 | Outpatient (RCR) | payer MEDICARE, OTHER, SELFPAY | END 2024-08-24 23:59 | disposition home or self-care (01) | LOC: PT 17:00 | PROVIDERS: Visit Provider Family Medicine | DX: M54.2 Cervicalgia (principal) | CPT/HCPCS: 97110; 97140; 97163; 97530 ==

== ENCOUNTER 2024-09-17 17:00 | Outpatient (RCR) | payer MEDICARE, OTHER, SELFPAY | END 2024-09-17 23:59 | disposition home or self-care (01) | LOC: PT 17:00 | PROVIDERS: Visit Provider Family Medicine | DX: M54.2 Cervicalgia (principal) | CPT/HCPCS: 97110; 97140 ==

== ENCOUNTER 2025-02-19 17:14 | Outpatient (CLI) | payer MEDICARE, OTHER, SELFPAY ==
--- OUTSIDE RECORDS SUMMARY | 2024-05-14 11:20 | XMS_ITS ---
Author Organization [facility] . Address [address] [place] [address] Care Team Providers Care Enterprise Integration Architect Name Role Phone Giselle Workman Primary Care Provider Darrell Adan Unavailable [phone] Encounters Encounter Location Date Provider Diagnosis [address] [place] [address] 05/14/2024 Darrell Cerda Plan Of Treatment No Information Progress Notes * Suzanne ESPINOZA LDOB:1975 (49 yo F)Acc No.[id number]:05/14/2024 Progress Note Patient: Suzanne SORIA Provider: Melquiades Cerda MD :1975 A ge:48 Y S ex:Female Date:05/14/2024 Address:[address] [place] [address], [address] [place], [place] [id number] Pcp:Giselle Workman Subjective: * Chief Complaints: * * Medical History: Objective: * Vitals: Assessment: Plan: * Treatment: * * Electronic signature of Carol Cerda MD on 02/19/2025 at 04:17 PM CDT Sign off status: Pending * Provider: Melquiades Cerda MD Date: 1 07/15/2023 Generated for Rosa wu/Nitza/eTkavinsmitting on: 0 02/19/2025 04:17 PM CDT
--- NOTE | 2025-02-19 17:16 | MR_ITS ---
PROCEDURE INFORMATION: Exam: MR Lumbar Spine Without Contrast Exam date and time: 02/19/2025 5:18 PM Age: 49 years old Clinical indication: Low back pain; Additional info: Drop foot to right foot and lower back pain TECHNIQUE: Imaging protocol: Magnetic resonance imaging of the lumbar spine without contrast. COMPARISON: CT THORACIC SPINE WO CON 12/30/2023 3:52 PM FINDINGS: Bones/joints: Congenital narrowing of the spinal canal. Spinal cord: Visualized cord, conus medullaris and cauda equina are unremarkable without compression. L1-L2: No significant disc bulge or herniation. No severe spinal canal stenosis. No significant neural foraminal narrowing. L2-L3: No significant disc bulge or herniation. No severe spinal canal stenosis. No significant neural foraminal narrowing. L3-L4: Central disc protrusion effaces the ventral thecal sac. Mild central canal stenosis. No neural foramina narrowing. No central canal stenosis. L4-L5: Broad disc bulge with central disc protrusion mild central canal stenosis. No neural foramina narrowing L5-S1: Left paracentral disc protrusion encroaches upon the left S1 nerve root. Soft tissues: Unremarkable. IMPRESSION: 1. Disc protrusions at L3-L4 and L4-L5 levels produce mild central canal stenosis and no significant neural foramina narrowing. 2. At the L5/S1 level there is a left paracentral disc protrusion impressing upon the left S1 nerve root.
--- OUTSIDE RECORDS SUMMARY | 2025-02-19 17:17 | XMS_ITS | Patient Health Record ---
Author Organization [facility] . Address [address] [place] [address] Care Team Providers Care Hone Operator Name Role Phone Giselle Workman Primary Care Provider Lyn OgDarrell retana Unavailable [phone] Allergies Allergen (clinical drug ingredient) Drug/Non Drug Allergy documented on EMR Reaction Allergy Type Onset Date Status aspirin Aspirin Unknown Drug Allergy Active Levaquin Unknown Drug Allergy Active penicillamine Penicillamine Unknown Drug Allergy Active topiramate Topiramate Unknown Drug Allergy Activ e Reason For Referral No Information Medications Medication SIG (Take, Route, Frequency, Duration) Notes Start Date End Date Status Acetaminophen 500 MG 2 tablets as needed Orally every 6 hrs Active Levothyroxine Sodium 25 MCG 1 tablet in the morning on an empty stomach Orally q am Active Cetirizine HCl 10 MG 1 tablet Orally Onc e a day; Duration: 30 day(s) Active Vitamin C 500 MG 1 tablet Orally Once a day; Duration: 30 day(s) Active Jardiance 10 MG 1 tablet Orally Once a day Active Montelukast Sodium 10 MG 1 tablet in the evening Orally Once a day Active Rybelsus 14 MG 1 tablet at least 30 minutes before first food, beverage or other oral medicine of the day Orally Once a day Active tiZANidine HCl 4 MG 1-2 tablet Orally qhs Active Pravastatin Sodium 20 MG 1 tablet Orally Once a day Active Vitamin D 25 MCG (1000 UT) 2 tablet Orally Once a day Active Famotidine 20 MG 2 tablets Orally Once a day Active Metoprolol Succinate ER 25 MG 1 tablet Orally Once a day Active Gabapentin 800 MG 1 tablet Orally four times a day Active Glimepiride 4 MG 2 tablets with breakfast or the first main meal of the day Orally Once a day Active Ventolin HFA 108 (90 Base) MCG/ACT 2 puffs as needed Inhalation every 6 hrs Active Valsartan 160 MG 1 tablet Orally Once a day Active Bumetanide 2 MG 1 tablet Orally Once a day Active Centrum Women - as directed Orally Active Iron 325 (65 Fe) MG 1 tablet Orally every other day Active Vitamin B12 1000 MCG 5 tablets Orally Once a day one 5000 mcg tablet Active Advair Diskus 500-50 MCG/ACT 1 puff Inhalation Twice a day 09/10/2023 Active Problems Problem Type SNOMED Code ICD Code Onset Dates Problem Status W/U Status Risk Notes Problem Information temporarily unavailable Morbid (severe) obesity due to excess calories (E66.01) Active confirmed Problem Information temporarily unavailable Vitamin D deficiency (E55.9) Active confirmed Problem Information temporarily unavailable Hyperlipidemia (E78.5) Active confirmed Problem Information temporarily unavailable HTN (hypertension) (I10) Active confirmed Problem Information temporarily unavailable Anemia, iron deficiency (D50.9) Active confirmed Problem Information temporarily unavailable Anemia, iron deficiency (D50.9) Active confirmed Problem Information temporarily unavailable Chronic kidney disease (CKD) stage G2/A1, mildly decreased glomerular filtration rate (GFR) between 60-89 mL/min/1.73 square meter and albuminuria creatinine ratio less than 30 mg/g (N18.2) Active confirmed Problem Information temporarily unavailable 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) Active confirmed Problem Information temporarily unavailable Hypertensive 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.9) Active confirmed Problem Information temporarily unavailable Chronic nephritic syndrome (N03.9) Active confirmed Problem Information temporarily unavailable Chronic kidney disease, stage 3 unspecified (N18.30) Active confirmed Encounters Encounter Location Date Provider Diagnosis [facility] [address] [place] [address] [address] [place] [address] 05/14/2024 Darrell Cerda Plan Of Treatment Pending Test Test Name Order Date CBC WITH DIFF 02/12/2023 CBC WITH DIFF 04/09/2023 CBC WITH DIFF 01/13/2024 CBC WITH DIFF 09/10/2023 CMP14+eGFR 09/10/2023 CMP14+eGFR 10/08/2022 CMP14+eGFR 06/30/2018 CMP14+eGFR 10/15/2017 CMP14+eGFR 01/05/2019 CMP14+eGFR 02/18/2018 CMP14+eGFR 02/09/2020 CMP14+eGFR 01/13/2024 CMP14+eGFR 04/09/2023 CMP14+eGFR 02/12/2023 CMP14+eGFR 02/19/2022 CMP14+eGFR 10/16/2021 CMP14+eGFR 07/28/2019 CMP14+eGFR 04/17/2021 CMP14+eGFR 09/22/2020 URINALYSIS COMPLETE 04/17/2021 URINALYSIS COMPLETE 02/12/2023 URINALYSIS COMPLETE 01/13/2024 URINALYSIS COMPLETE 09/10/2023 URINALYSIS COMPLETE 02/09/2020 URINALYSIS COMPLETE 02/19/2022 URINALYSIS COMPLETE 10/08/2022 CBC W AUTOMATED DIFFERENTIAL 06/30/2018 CBC W AUTOMATED DIFFERENTIAL 10/08/2022 CBC W AUTOMATED DIFFERENTIAL 02/09/2020 CBC W AUTOMATED DIFFERENTIAL 02/18/2018 CBC W AUTOMATED DIFFERENTIAL 01/05/2019 CBC W AUTOMATED DIFFERENTIAL 10/15/2017 CBC W AUTOMATED DIFFERENTIAL 02/19/2022 CBC W AUTOMATED DIFFERENTIAL 10/16/2021 CBC W AUTOMATED DIFFERENTIAL 04/17/2021 CBC W AUTOMATED DIFFERENTIAL 09/22/2020 CBC W AUTOMATED DIFFERENTIAL 07/28/2019 HGB A1C (GLYCOHEMOGLOBIN) 04/17/2021 HGB A1C (GLYCOHEMOGLOBIN) 10/16/2021 HGB A1C (GLYCOHEMOGLOBIN) 01/13/2024 HGB A1C (GLYCOHEMOGLOBIN) 04/09/2023 HGB A1C (GLYCOHEMOGLOBIN) 09/10/2023 Insurance Providers Payer Name Payer Address Payer Phone Subscriber Number Group Number Insured Name Patient Relationship to Insured Coverage Start Date Coverage End Date [place] [address] [place] [place] [address] [id number] Suzanne Espinoza Self - patient is the insured [facility] [address] [place] [address] [id number] Suzanne Espinoza Self - patient is the insured Medical (General) History Medical History History ICD Code Chronic kidney disease N18.9 Uncomplicated asthma J45.909 Type 2 diabetes mellitus without complic ations E11.9 Sleep apnea G47.30 Essential (primary) hypertension I10 Low back pain M54.5 Surgical History Surgery Date(Month/Year) C section Bilateral ear tubes Scrape nasal area x2 Hospitalization History Reason Date(Month/Year) [facility] - 7 day stay - sepsis 06/18/22
--- OUTSIDE RECORDS SUMMARY | 2025-02-19 17:17 | XMS_ITS | Clinical Summary ---
Author Organization [facility] Address [address] [place] [address] Care Team Providers Care Manufacturers Agent Name Role Phone Unavailable Primary Care Provider Unavailabl e Social History Tobacco Use Types Packs/Day Years Used Date Smoking Tobacco: Never Assessed Abuse Screen Answer Date Recorded Unsafe at Home or Work/School Not on file Feels Threatened by Someone? Not on file 02/2023 Does Anyone Keep You from Co ntacting Others or Doint Things Outside the Home? Not on file 03/05/2023 Physical Sign of Abuse Present Not on file 1 Housing Stability Answer Date Recorded Current Living Arrangements Not on file 02/24 Potentially Unsafe Housing Conditions Not on hunter e 03/05/2023 Family and Community Support Answer Enrique e Recorded Help with Day-to-Day Activities Not on file 03/05/2023 Lonely or Isolated Not on file 03/05/2023 Employment Answer Date Recorded Do you want help finding or keeping work or a tylor b? Not on file 03/05/2023 Disabilities Answer Date Recorded Concentrating, Remembering, or Making Decisions Difficulty Not on file 03/05/2023 Doing Errands Independently Difficulty Not on fi le 03/05/2023 Education Answer Date Recorded Help with school or training? Not on file Preferred Language Not on file 03/05/2023 Comments Unknown Sex and Gender Information Value Date Recorded Sex Assigned at Not on file Legal Sex Female 1:45 PM EDT Gender Identity Not on file Sexual Orientation Not on file Plan of Treatment Health Maintenance Due Date Last Done Comments ANNUAL PHYSICAL 1975 Annual Gynecologic Pelvic an d Breast Exam 1975 HEPATITIS C SCREENING 1975 TDAP/TD VACCINES (1 - Tdap) 12/19/1994 MAMMOGRAM 2015 COLOGUARD 12/19/2020 COLON CANCER SCREENING 5 YEA R SIGMOIDOSCOPY 12/19/2020 COLONOSCOPY 12/19/2020 COLORECTAL CANCER SCREENING 12/19/2020 CT COLONOGRAPHY 12/19/2020 FECAL OCCULT BLOOD TEST 12/19/2020 FIT Testing (1 year) 12/19/2020 INFLUENZA VACCINE 12/25/2024 Pneumococcal Vaccine 0-49 Aged Out No longer eligible based on patient's age to complete this topic
--- OUTSIDE RECORDS SUMMARY | 2025-02-19 17:17 | XMS_ITS | Clinical Summary ---
Author Organization [facility] Address [address] [place] [address] Phone Care Team Providers Care Pony Cylinder Press Operator Name Role Phone Unavailable Unavailable Conditions or Problems No information available. Medications No information available. Medications Administered No information available. Allergies, Adverse Reactions, Alerts No information available. Results No information available. Plan of Care No information available. Procedures No information available. Vital Signs No information available. Immunizations No information available. Advance Directives No information available.
--- OUTSIDE RECORDS SUMMARY | 2025-02-19 17:17 | XMS_ITS | Patient Health Record ---
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 Role Phone Giselle Workman DO Primary Care Provider Lavinia Ogmazin Darrell Unavailable [phone] Allergies Allergen (clinical drug ingredient) Drug/Non Drug Allergy documented on EMR Reaction Allergy Type Onset Date Status aspirin Aspirin Unknown Drug Allergy Active Levaquin Unknown Drug Allergy Active penicillamine Penicillamine Unknown Drug Allergy Active topiramate Topiramate Unknown Drug Allergy Activ e Reason For Referral No Information Medications Medication SIG (Take, Route, Frequency, Duration) Notes Start Date End Date Status Gabapentin 800 MG 1 tablet Orally four times a day Active tiZANidine HCl 4 MG 1-2 tablet Orally qhs Active Glimepiride 4 MG 2 tablets with breakfast or the first main meal of the day Orally Once a day Active Valsartan 160 MG 1 tablet Orally Once a day Active Cetirizine HCl 10 MG 1 tablet Orally Onc e a day; Duration: 30 day(s) Active Pravastatin Sodium 20 MG 1 tablet Orally Once a day Active Famotidine 20 MG 2 tablets Orally Onc e a day Active Levothyroxine Sodium 25 MCG 1 tablet in the morning on an empty stomach Orally q am Active Acetaminophen 500 MG 2 tablets as needed Orally every 6 hrs Active Iron 325 (65 Fe) MG 1 tablet Orally ever y other day Active Ventolin HFA 108 (90 Base) MCG/ACT 2 puffs as needed Inhalation every 6 hrs Active Jardiance 10 MG 1 tablet Orally Once a day Active Vitamin B12 1000 MCG 5 tablets Orally On ce a day one 5000 mcg tablet Active Vitamin C 500 MG 1 tablet Orally Once a day; Duration: 30 day(s) Active Bumetanide 2 MG 1 tablet Orally Once a day Active Mounjaro 2.5 MG/0.5ML as directed Subcutaneous 09/14/2024 Active Centrum Women - as directed Orally Active PARoxetine HCl 10 MG 1 tablet in the morning Orally Once a day 05/14/2024 Active Metoprolol Succinate ER 25 MG 1 tablet Orally Once a day Active Vitamin D 25 MCG (1000 UT) 2 tablet Orally Once a day Active Breo Ellipta 100-25 MCG/ACT 1 puff Inhalation Once a day 05/14/2024 Active Montelukast Sodium 10 MG 1 tablet in the evening Orally Once a day Active Problems Problem Type SNOMED Code ICD Code Onset Dates Problem Status W/U Status Risk Notes Problem Morbid obesity (disorder) (514103812) Morbid (severe) obesity due to excess calories (E66.01) Active confirmed Problem Chronic kidney disease stage 3 (disorder) (245455396) Chronic kidney disease, stage 3 unspecified (N18.30) Active confirmed Problem Vitamin D deficiency (14553143) Vitamin D deficiency (E55.9) Active confirmed Problem Hyperlipidemia (41396301) Hyperlipidemia (E78.5) Active confirmed Problem Hypertension (59804936) HTN (hypertension) (I10) Active confirmed Problem Malignant hypertensive chronic kidney disease (859078565659585) Hypertensive 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.9) Active confirmed Problem Chronic kidney disease stage 2 (673119366) Chronic kidney disease (CKD) stage G2/A1, mildly decreased glomerular filtration rate (GFR) between 60-89 mL/min/1.73 square meter and albuminuria creatinine ratio less than 30 mg/g (N18.2) Active confirmed Problem Iron deficiency anemia (33256146) Anemia, iron deficiency (D50.9) Active confirmed Problem Chronic nephritic syndrome (418028963) Chronic nephritic syndrome (N03.9) Active confirmed Problem Iron deficiency anemia (89683613) Anemia, iron deficiency (D50.9) Active confirmed Problem 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) Active confirmed Vital Signs Heart Rate 86 /min 05/14/2024 Temperature 97.1 degrees Fahrenheit 09/14/2024 Respiratory Rate 20 /min 09/14/2024 Height-cm 172.72 cm 09/14/2024 Oximetry 96 % 05/14/2024 Blood pressure diastolic 72 mm Hg 09/14/2024 Weight-kg 196.86 kg 09/14/2024 Height 68 in 09/14/2024 Blood pressure systolic 124 mm Hg 09/14/2024 Weight 434.0 lbs 09/14/2024 BMI 65.98 kg/m2 09/14/2024 Encounters Encounter Location Date Provider Diagnosis [facility] [address] [address] [place] [address] 05/14/2024 Darrell Cerda Chronic kidney disease, stage 3 unspecified N18.30 ; Diabetes mellitus with kidney disease E11.21 ; Hypertensive chronic kidney disease w stg 1-4/unsp chr kdny I12.9 ; Hyperlipidemia E78.5 ; Anemia, iron deficiency D50.9 and Morbid (severe) obesity due to excess calories E66.01 [address] [address] [place] [address] 09/14/2024 Darrell Cerda Chronic kidney disease, stage 3 unspecified N18.30 ; Diabetes mellitus with kidney disease E11.21 ; Hypertensive chronic kidney disease w stg 1-4/unsp chr kdny I12.9 ; Anemia, iron deficiency D50.9 ; Vitamin D deficiency E55.9 and Morbid (severe) obesity due to excess calories E66.01 [address] [address] [place] [address] 07/22/2024 Darrell Cerda Assessments Encounter Date Diagnosis (ICD Code) Assessment Notes Treatment Notes Treatment Clinical Notes Section Notes 05/14/2024 Chronic kidney disease, stage 3 unspecified (ICD-10 - N18.30) I went over today's findings including lab results with Suzanne and her . I pointed out that her kidney function has returned to her previous baseline and that the acute fall and function noted at last exam was undoubtably due to to her exposure to IV contrast and perhaps overuse of Bumex. Both of those situations have resolved and her kidney function has returned to her previous level which is only mildly abnormal. She appears to be reasonably compensated today despite her morbid obesity and kidney dysfunction. I have made no changes in her chronic medications which we reconciled. We agreed to meet again in 4 months. 09/14/2024 Chronic kidney disease, stage 3 unspecified (ICD-10 - N18.30) I went over today's findings with Suzanne and her and pointed out that her kidney function is within her usual range based on lab parameters. Hopefully the semaglutide that she is now on will help her lose some weight. Any reduction would be an improvement in her overall health and longevity prognosis. I have made no changes in her medications after we reconciled those medications today. We agreed to meet again in 6 months. 05/14/2024 Diabetes mellitus with kidney disease (ICD-10 - E11.21) I went over today's findings including lab results with Suzanne and her . I pointed out that her kidney function has returned to her previous baseline and that the acute fall and function noted at last exam was undoubtably due to to her exposure to IV contrast and perhaps overuse of Bumex. Both of those situations have resolved and her kidney function has returned to her previous level which is only mildly abnormal. She appears to be reasonably compensated today despite her morbid obesity and kidney dysfunction. I have made no changes in her chronic medications which we reconciled. We agreed to meet again in 4 months. 09/14/2024 Diabetes mellitus with kidney disease (ICD-10 - E11.21) I went over today's findings with Suzanne and her and pointed out that her kidney function is within her usual range based on lab parameters. Hopefully the semaglutide that she is now on will help her lose some weight. Any reduction would be an improvement in her overall health and longevity prognosis. I have made no changes in her medications after we reconciled those medications today. We agreed to meet again in 6 months. 09/14/2024 Hypertensive chronic kidney disease w stg 1-4/unsp chr kdny (ICD-10 - I12.9) I went over today's findings with Suzanne and her and pointed out that her kidney function is within her usual range based on lab parameters. Hopefully the semaglutide that she is now on will help her lose some weight. Any reduction would be an improvement in her overall health and longevity prognosis. I have made no changes in her medications after we reconciled those medications today. We agreed to meet again in 6 months. 05/14/2024 Hypertensive chronic kidney disease w stg 1-4/unsp chr kdny (ICD-10 - I12.9) I went over today's findings including lab results with Suzanne and her . I pointed out that her kidney function has returned to her previous baseline and that the acute fall and function noted at last exam was undoubtably due to to her exposure to IV contrast and perhaps overuse of Bumex. Both of those situations have resolved and her kidney function has returned to her previous level which is only mildly abnormal. She appears to be reasonably compensated today despite her morbid obesity and kidney dysfunction. I have made no changes in her chronic medications which we reconciled. We agreed to meet again in 4 months. 05/14/2024 Hyperlipidemia (ICD-10 - E78.5) I went over today's findings including lab results with Suzanne and her . I pointed out that her kidney function has returned to her previous baseline and that the acute fall and function noted at last exam was undoubtably due to to her exposure to IV contrast and perhaps overuse of Bumex. Both of those situations have resolved and her kidney function has returned to her previous level which is only mildly abnormal. She appears to be reasonably compensated today despite her morbid obesity and kidney dysfunction. I have made no changes in her chronic medications which we reconciled. We agreed to meet again in 4 months. 09/14/2024 Anemia, iron deficiency (ICD-10 - D50.9) I went over today's findings with Suzanne and her and pointed out that her kidney function is within her usual range based on lab parameters. Hopefully the semaglutide that she is now on will help her lose some weight. Any reduction would be an improvement in her overall health and longevity prognosis. I have made no changes in her medications after we reconciled those medications today. We agreed to meet again in 6 months. 05/14/2024 Anemia, iron deficiency (ICD-10 - D50.9) I went over today's findings including lab results with Suzanne and her . I pointed out that her kidney function has returned to her previous baseline and that the acute fall and function noted at last exam was undoubtably due to to her exposure to IV contrast and perhaps overuse of Bumex. Both of those situations have resolved and her kidney function has returned to her previous level which is only mildly abnormal. She appears to be reasonably compensated today despite her morbid obesity and kidney dysfunction. I have made no changes in her chronic medications which we reconciled. We agreed to meet again in 4 months. 09/14/2024 Vitamin D deficiency (ICD-10 - E55.9) I went over today's findings with Suzanne and her and pointed out that her kidney function is within her usual range based on lab parameters. Hopefully the semaglutide that she is now on will help her lose some weight. Any reduction would be an improvement in her overall health and longevity prognosis. I have made no changes in her medications after we reconciled those medications today. We agreed to meet again in 6 months. 09/14/2024 Morbid (severe) obesity due to excess calories (ICD-10 - E66.01) I went over today's findings with Suzanne and her and pointed out that her kidney function is within her usual range based on lab parameters. Hopefully the semaglutide that she is now on will help her lose some weight. Any reduction would be an improvement in her overall health and longevity prognosis. I have made no changes in her medications after we reconciled those medications today. We agreed to meet again in 6 months. 05/14/2024 Morbid (severe) obesity due to excess calories (ICD-10 - E66.01) I went over today's findings including lab results with Suzanne and her . I pointed out that her kidney function has returned to her previous baseline and that the acute fall and function noted at last exam was undoubtably due to to her exposure to IV contrast and perhaps overuse of Bumex. Both of those situations have resolved and her kidney function has returned to her previous level which is only mildly abnormal. She appears to be reasonably compensated today despite her morbid obesity and kidney dysfunction. I have made no changes in her chronic medications which we reconciled. We agreed to meet again in 4 months. Plan Of Treatment Pending Test Test Name Order Date Uric Acid, Serum 05/14/2024 Hemoglobin A1c 05/14/2024 PTH, Intact 09/14/2024 CBC, Platelet with No Differential 05/14 CBC, Platelet with No Differential 09/14 Vitamin D, 25-Hydroxy 09/14/2024 Comp. Metabolic Panel (14) 09/14/2024 Comp. Metabolic Panel (14) 05/14/2024 Urinalysis 05/14/2024 Urinalysis 09/14/2024 CBC WITH DIFF 09/10/2023 CBC WITH DIFF 01/13/2024 CBC WITH DIFF 02/12/2023 CBC WITH DIFF 04/09/2023 CMP14+eGFR 02/12/2023 CMP14+eGFR 10/08/2022 CMP14+eGFR 04/17/2021 CMP14+eGFR 10/16/2021 CMP14+eGFR 02/19/2022 CMP14+eGFR 10/15/2017 CMP14+eGFR 02/18/2018 CMP14+eGFR 06/30/2018 CMP14+eGFR 01/05/2019 CMP14+eGFR 07/28/2019 CMP14+eGFR 02/09/2020 CMP14+eGFR 09/22/2020 CMP14+eGFR 09/10/2023 CMP14+eGFR 04/09/2023 CMP14+eGFR 01/13/2024 URINALYSIS COMPLETE 09/10/2023 URINALYSIS COMPLETE 01/13/2024 URINALYSIS COMPLETE 02/09/2020 URINALYSIS COMPLETE 04/17/2021 URINALYSIS COMPLETE 02/12/2023 URINALYSIS COMPLETE 02/19/2022 URINALYSIS COMPLETE 10/08/2022 CBC W AUTOMATED DIFFERENTIAL 10/16/2021 CBC W AUTOMATED DIFFERENTIAL 10/08/2022 CBC W AUTOMATED DIFFERENTIAL 02/19/2022 CBC W AUTOMATED DIFFERENTIAL 10/15/2017 CBC W AUTOMATED DIFFERENTIAL 02/09/2020 CBC W AUTOMATED DIFFERENTIAL 04/17/2021 CBC W AUTOMATED DIFFERENTIAL 09/22/2020 CBC W AUTOMATED DIFFERENTIAL 07/28/2019 CBC W AUTOMATED DIFFERENTIAL 01/05/2019 CBC W AUTOMATED DIFFERENTIAL 06/30/2018 CBC W AUTOMATED DIFFERENTIAL 02/18/2018 HGB A1C (GLYCOHEMOGLOBIN) 10/16/2021 HGB A1C (GLYCOHEMOGLOBIN) 04/17/2021 HGB A1C (GLYCOHEMOGLOBIN) 04/09/2023 HGB A1C (GLYCOHEMOGLOBIN) 01/13/2024 HGB A1C (GLYCOHEMOGLOBIN) 09/10/2023 Next Appt Details Provider Name:Darrell FORTE Prashant, 03/22/2025 03:00:00 PM, [address], [place], [address], Insurance Providers Payer Name Payer Address Payer Phone Subscriber Number Group Number Insured Name Patient Relationship to Insured Coverage Start Date Coverage End Date [place] [address] [place] [address] [id number] Suzanne Espinoza Self - patient is the insured [facility] [address] [place] [address] [id number] Suzanne Espinoza Self - patient is the insured Medical (General) History Medical History History ICD Code Chronic kidney disease N18.9 Uncomplicated asthma J45.909 Type 2 diabetes mellitus without complic ations E11.9 Sleep apnea G47.30 Essential (primary) hypertension I10 Low back pain M54.5 Surgical History Surgery Date(Month/Year) C section Bilateral ear tubes Scrape nasal area x2 Hospitalization History Reason Date(Month/Year) [facility] - 7 day stay - sepsis 06/18/22
--- OUTSIDE RECORDS SUMMARY | 2025-02-19 17:17 | XMS_ITS | Clinical Summary ---
Author Organization [facility] Address [address] 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 Name Role Phone Giselle Workman DO Primary Care Provider [phone] Allergies Active Allergy Reactions Criticality Noted Date Comments Aspirin Other - please docum ent in the comment field,Unknown - Patient states they do not know rxn details Low 01/02/2017 Levofloxacin Palpitations Low 09/14/2024 Penicillins Rash Low 09/14/2024 Topiramate Other - please docum ent in the comment field,Unknown - Patient states they do not know rxn details Low 01/02/2017 Medications albuterol (Ventolin HFA) 108 (90 Base) MCG/ACT inhaler Inhale 1 puff 1 (one) time as needed for wheezing or shortness of breath. 7 Active bumetanide (Bumex) 2 MG tablet Take 1 tablet by mouth daily. 7 Active Jardiance 10 MG Take 1 tablet by mouth daily. 5 Active Breo Ellipta 200-25 MCG/ACT aerosol powder Inhale 1 puff daily. Active famotidine (Pepcid) 20 MG tablet Take 1 tablet by mouth 2 (two) times a day. 7 Active gabapentin (Neurontin) 800 MG tablet Take 1 tablet by mouth 4 (four) times a day. Active glimepiride (Amaryl) 4 MG tablet Take 2 tablets by mouth daily. Active liothyronine (Cytomel) 25 MCG tablet Take 1 tablet by mouth every morning. 5 Active lisinopril 20 MG tablet Take 1 tablet by mouth nightly. 7 Active metoprolol succinate XL (Toprol-XL) 25 MG 24 hr tablet Take 1 tablet by mouth daily. 5 Active montelukast (Singulair) 10 MG tablet Take 1 tablet by mouth daily. Active pravastatin (Pravachol) 20 MG tablet Take 1 tablet by mouth nightly. 5 Active Mounjaro 7.5 MG/0.5ML solution auto-injector solution pen-injector Inject 0.5 mL under the skin 1 (one) time per week. 5 Active tiZANidine (Zanaflex) 4 MG tablet Take 1 tablet by mouth every 8 hours. Active valsartan (Diovan) 160 MG tablet Take 1 tablet by mouth daily. Active Multiple Vitamins-Mineral s (CENTRUM MINIS WOMEN 50+ PO) Take 1 tablet by mouth daily. Active Ascorbic Acid (Vitamin C) 500 MG capsule Take 1 capsule by mouth daily. Active Cyanocobalamin (Vitamin B-12) 5000 MCG tablet dispersible Dissolve 10,000 mg on the tongue daily. Active cholecalciferol (Vitamin D-3) 25 MCG (1000 UT) capsule Take 2 capsules by mouth daily. Active Iron, Ferrous Sulfate, 325 (65 Fe) MG tablet Take 65 mg of iron by mouth every other day. Active cetirizine (ZyrTEC) 10 MG tablet Take 1 tablet by mouth daily. Active Active Problems No known active problems Immunizations Immunization Administration Dates Next Due Tdap 11/16/2013 Family History Medical History Relation Name Comments Colon cancer Maternal Grandmother Heart attack Mother Stroke Mother Relation Name Status Comments Maternal Grandmother Mother Social History Tobacco Use Types Packs/Day Years Used Date Smoking Tobacco: Never Passive Smoke Exposure: Never Smokeless Tobacco: Never Tobacco Cessation:Counseling Given: Not Answered PHQ-2 Answer Date Recorded Patient Health Questionnaire-2 Score 0 10/12/2024 PHQ-9 Answer Date Recorded Patient Health Questionnaire-9 Score 0 10/12/2024 Comments Unknown Sex and Gender Information Value Date Recorded Sex Assigned at Not on file Legal Sex Female 8:41 PM EDT Gender Identity Not on file Sexual Orientation Not on file Last Filed Vital Signs Vital Sign Reading Time Taken Comments Blood Pressure 136/84 10/12/2024 8:05 AM EDT Pulse 68 10/12/2024 8:05 AM EDT Temperature 36.8 C (98.3 F) 06/25/2022 10:31 AM EST Respiratory Rate 14 10/12/2024 8:05 AM EDT Oxygen Saturation 100% 10/12/2024 8:05 AM EDT Inhaled Oxygen Concentration - - Weight 201 kg (443 lb) 10/12/2024 8:05 AM EDT Height 172.7 cm (5' 8 ) 10/12/2024 8:05 AM EDT Body Mass Index 67.36 10/12/2024 8:05 AM EDT Plan of Treatment Health Maintenance Due Date Last Done Comments [facility]-Diabetes: Hemoglobin A1C 1975 [facility]-HIV Screening 1975 [facility]-Hepatitis C Screening 1975 [facility]-Medicare Annual Wellness (AWV) 1975 [facility]-/Child/Adol SDOH Screenings 1975 Diabetes: Dental Exam 12/19/1985 [facility]- SDOH Screenings 12/19/1993 [facility]-Adult SDOH Screenings 12/19/1993 Y-Hepatitis B Vaccines (1 of 3 - 19+ 3-dose series) 12/19/1994 [facility]-Pneumococcal Vaccine: Pediatrics (0 to 5 Years) and At-Risk Patients (6 to 49 Years) (1 of 2 - PCV) 12/19/1994 Y-Pap Smear 12/19/1996 Y-Cervical Cancer Screening 12/19/2005 [facility]-HPV/Cotest 12/19/2005 CT Colonography 12/19/2020 Colonoscopy 12/19/2020 FIT-DNA 12/19/2020 FIT 12/19/2020 FOBT 12/19/2020 Sigmoidoscopy 12/19/2020 [facility]-Colorectal Cancer Screening 12/19/2020 [facility]-DTaP,Tdap,and Td Vaccine s (2 - Td or Tdap) 11/17/2023 11/16/2013 RAE-COODH-04 Vaccine (3 - 2024- season) 2025 05/22/2021, 12/12/2020 Y-Influenza Vaccine (#1) 2025 [facility]-Depression Screening 10/12/2025 025, 10/12/2024 [facility]-Zoster Vaccines (1 of 2) 12/19/2025 [facility]-Obesity Intervention Completed 025, 09/14/2024 HPV Vaccines Aged Out No longer eligi ble based on patient's age to complete this topic [facility]-HIB Vaccines Aged Out No longer e ligible based on patient's age to complete this topic [facility]-Hepatitis A Vaccines Aged Out No longer eligible based on patient's age to complete this topic [facility]-IPV Vaccines Aged Out No longer e ligible based on patient's age to complete this topic [facility]-Rotavirus Vaccines Aged Out No lo nger eligible based on patient's age to complete this topic Insurance KATHY BARRERA [id number] [employer] [place] [address] Care 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
== END 2025-02-19 23:59 | disposition home or self-care (01) ==
LOC: RAD 17:15
PROVIDERS: PCP Family Medicine; Visit Provider Family Medicine
DX: M51.16 Intervertebral disc disorders with radiculopathy, lumbar region (principal); M51.17 Intervertebral disc disorders with radiculopathy, lumbosacral region; M48.061 Spinal stenosis, lumbar region without neurogenic claudication; M21.371 Foot drop, right foot
CPT/HCPCS: 72148